=== PATIENT | male | born 1955 | race Caucasian/White ===

== ENCOUNTER 2018-02-13 17:24 | Inpatient (IN) | payer MEDICARE, OTHER ==
[2018-02-13] MEDS ORDERED: ALBUTEROL NEBULIZED (CONC) 5 MG, SODIUM CHLORIDE 0.9% NEBULIZ 3 ML INHALATION STA ×2 (17:33)
--- NOTE | 2018-02-13 17:40 | ED ---
General Adult HPI - General Stated complaint: Cardiac issues Time Seen by Provider: 02/13/18 17:25 Source: RN notes reviewed - History of Present Illness Initial comments: This is a 62-year-old male who presents to the emergency department from the correction. Patient has a history of anemia COPD and schizophrenia. Patient is being sent in today because he is complaining of some shortness of breath and occasional chest pain. Difficult to get an accurate history out of the patient. Most of the history comes per EMS. EMS states that the patient has a high white count and they are concerned at the correction that he has pneumonia. Patient has not had a fever. Patient denies any chest pain abdominal pain. Patient denies any nausea vomiting. Patient denies headache patient denies numbness weakness. Patient denies lightheadedness dizziness or near syncopal episode at correction was also concerned that the patient had A. fib on one of the EKGs that they did. Per EMS in route the patient was in sinus rhythm. - Related Data Home Medications Medication Instructions Recorded Confirmed Acetaminophen Tab [Tylenol Tab] 650 mg PO Q4H PRN 02/13/18 02/13/18 Albuterol Sulfate [Proair Hfa] 1 puff INHALATION RT-Q4H PRN 02/13/18 02/13/18 Amoxicillin/Potassium Clav 1 tab PO Q12HR 02/13/18 02/13/18 [Augmentin 875-125 Tablet] Calcium Acetate [Phoslo] 667 mg PO TID 02/13/18 02/13/18 Calcium Carbonate [Tums] 500 mg PO DAILY PRN 02/13/18 02/13/18 Cholecalciferol (Vitamin D3) 2,000 unit PO DAILY 02/13/18 02/13/18 [Vitamin D3] Clotrimazole/Betamethasone Dip 1 applic TOPICAL BID 02/13/18 02/13/18 [Lotrisone Cream] Demeclocycline HCl 300 mg PO DAILY 02/13/18 02/13/18 Famotidine [Pepcid] 20 mg PO HS 02/13/18 02/13/18 Fluticasone/Salmeterol [Advair 1 puff INHALATION RT-BID 02/13/18 02/13/18 250-50 Diskus] LORazepam [Ativan] 0.5 mg PO TID PRN 02/13/18 02/13/18 LORazepam [Ativan] 0.5 mg PO TUFR 02/13/18 02/13/18 Loratadine [Claritin] 10 mg PO DAILY 02/13/18 02/13/18 Lurasidone [Latuda] 40 mg PO DAILY 02/13/18 02/13/18 Lurasidone [Latuda] 80 mg PO DAILY 02/13/18 02/13/18 Magnesium Hydroxide [Milk of 1,200 mg PO Q72H PRN 02/13/18 02/13/18 Magnesia] Magnesium Oxide [Mag-Ox] 250 mg PO Q48H 02/13/18 02/13/18 Metoprolol Succinate [Toprol XL] 25 mg PO HS 02/13/18 02/13/18 Multivitamins, Thera [Multivitamin 1 tab PO DAILY 02/13/18 02/13/18 (formulary)] amLODIPine BESYLATE [Norvasc] 2.5 mg PO DAILY 02/13/18 02/13/18 Allergies Allergy/AdvReac Type Severity Reaction Status Date / Time thiothixene [From Navane] Allergy Unknown Verified 02/13/18 17:47 Review of Systems ROS Statement: Those systems with pertinent positive or pertinent negative responses have been documented in the HPI. ROS Other: All systems not noted in ROS Statement are negative. Past Medical History History of Any Multi-Drug Resistant Organisms: Other MDRO General Exam - General Exam Comments Initial Comments: GENERAL: Patient is well-developed and well-nourished. Patient is nontoxic and well- hydrated and is in mild distress. ENT: Neck is soft and supple. No significant lymphadenopathy is noted. Oropharynx is clear. Moist mucous membranes. Neck has full range of motion without eliciting any pain. EYES: The sclera were anicteric and conjunctiva were pink and moist. Extraocular movements were intact and pupils were equal round and reactive to light. Eyelids were unremarkable. PULMONARY: Diminished breath sounds throughout CARDIOVASCULAR: There is a regular rate and rhythm without any murmurs gallops or rubs. ABDOMEN: Soft and nontender with normal bowel sounds. No palpable organomegaly was noted. There is no palpable pulsatile mass. SKIN: Skin is clear with no lesions or rashes and otherwise unremarkable. NEUROLOGIC: Patient is alert and oriented x3. Cranial nerves II through XII are grossly intact. Motor and sensory are also intact. Normal speech, volume and content. Symmetrical smile. MUSCULOSKELETAL: Normal extremities with adequate strength and full range of motion. LYMPHATICS: No significant lymphadenopathy is noted PSYCHIATRIC: Patient is a very flat affect Course Vital Signs 02/13/18 02/13/18 02/13/18 17:25 17:48 17:57 Temperature 98.5 F Pulse Rate 106 H 102 H 106 H Respiratory 22 Rate Blood Pressure 141/79 O2 Sat by Pulse 100 Oximetry 02/13/18 18:12 Temperature Pulse Rate 109 H Respiratory 22 Rate Blood Pressure 139/85 O2 Sat by Pulse 100 Oximetry Medical Decision Making - Medical Decision Making EKG shows sinus tachycardia at 108 bpm OR interval 128 QRS is 72 QT interval 312 QTC is 418. Patient's EKG shows no ST segment elevation or depression or T wave abnormalities are noted. Chest x-ray shows a right upper lobe pneumonia. I started the patient on Rocephin and Zithromax. I admitted the patient I spoke with Dr. Hickman admitted the patient wrote admitting orders - Lab Data Result diagrams: 02/13/18 17:50 02/13/18 17:50 Lab Results 02/13/18 02/13/18 02/13/18 Range/Units 17:50 17:50 17:50 WBC 17.1 H (3.8-10.6) k/uL RBC 4.24 L (4.30-5.90) m/uL Hgb 12.1 L (13.0-17.5) gm/dL Hct 37.6 L (39.0-53.0) % MCV 88.6 (80.0-100.0) fL MCH 28.6 (25.0-35.0) pg MCHC 32.3 (31.0-37.0) g/dL RDW 12.7 (11.5-15.5) % Plt Count 408 (150-450) k/uL Neutrophils % 83 % Lymphocytes % 7 % Monocytes % 6 % Eosinophils % 1 % Basophils % 0 % Neutrophils # 14.2 H (1.3-7.7) k/uL Lymphocytes # 1.3 (1.0-4.8) k/uL Monocytes # 1.1 H (0-1.0) k/uL Eosinophils # 0.2 (0-0.7) k/uL Basophils # 0.0 (0-0.2) k/uL Sodium 135 L (137-145) mmol/L Potassium 4.1 (3.5-5.1) mmol/L Chloride 94 L (98-107) mmol/L Carbon Dioxide 24 (22-30) mmol/L Anion Gap 17 mmol/L BUN 26 H (9-20) mg/dL Creatinine 0.80 (0.66-1.25) mg/dL Est GFR (CKD-EPI)AfAm >90 (>60 ml/min/1.73 sqM) Est GFR (CKD-EPI)NonAf >90 (>60 ml/min/1.73 sqM) Glucose 108 H (74-99) mg/dL Plasma Lactic Acid Jarred (0.7-2.0) mmol/L Calcium 9.5 (8.4-10.2) mg/dL Total Bilirubin 0.5 (0.2-1.3) mg/dL AST 48 (17-59) U/L ALT 28 (21-72) U/L Alkaline Phosphatase 78 (38-126) U/L Total Creatine Kinase 154 (55-170) U/L CK-MB (CK-2) 4.2 H* (0.0-2.4) ng/mL CK-MB (CK-2) Rel Index 2.7 Troponin I 0.020 (0.000-0.034) ng/mL Total Protein 7.4 (6.3-8.2) g/dL Albumin 3.7 (3.5-5.0) g/dL Influenza Type A RNA (Not Detectd) Influenza Type B (PCR) (Not Detectd) 02/13/18 02/13/18 Range/Units 17:50 17:55 WBC (3.8-10.6) k/uL RBC (4.30-5.90) m/uL Hgb (13.0-17.5) gm/dL Hct (39.0-53.0) % MCV (80.0-100.0) fL MCH (25.0-35.0) pg MCHC (31.0-37.0) g/dL RDW (11.5-15.5) % Plt Count (150-450) k/uL Neutrophils % % Lymphocytes % % Monocytes % % Eosinophils % % Basophils % % Neutrophils # (1.3-7.7) k/uL Lymphocytes # (1.0-4.8) k/uL Monocytes # (0-1.0) k/uL Eosinophils # (0-0.7) k/uL Basophils # (0-0.2) k/uL Sodium (137-145) mmol/L Potassium (3.5-5.1) mmol/L Chloride (98-107) mmol/L Carbon Dioxide (22-30) mmol/L Anion Gap mmol/L BUN (9-20) mg/dL Creatinine (0.66-1.25) mg/dL Est GFR (CKD-EPI)AfAm (>60 ml/min/1.73 sqM) Est GFR (CKD-EPI)NonAf (>60 ml/min/1.73 sqM) Glucose (74-99) mg/dL Plasma Lactic Acid Jarred 1.7 (0.7-2.0) mmol/L Calcium (8.4-10.2) mg/dL Total Bilirubin (0.2-1.3) mg/dL AST (17-59) U/L ALT (21-72) U/L Alkaline Phosphatase (38-126) U/L Total Creatine Kinase (55-170) U/L CK-MB (CK-2) (0.0-2.4) ng/mL CK-MB (CK-2) Rel Index Troponin I (0.000-0.034) ng/mL Total Protein (6.3-8.2) g/dL Albumin (3.5-5.0) g/dL Influenza Type A RNA Not Detected (Not Detectd) Influenza Type B (PCR) Not Detected (Not Detectd) Disposition Clinical Impression: Pneumonia Disposition: ADMITTED IP TO THIS HOSP Is patient prescribed a controlled substance at d/c from ED?: No Referrals: Saurabh Fisher DO [Primary Care Provider] - 1-2 days Time of Disposition: 18:45
[2018-02-13 18:02] LABS: Basophils % (A) 0 %; Eosinophils # (A) 0.2 k/uL (0-0.7); Eosinophils % (A) 1 %; HCT 37.6 % (39.0-53.0); HGB 12.1 gm/dL (13.0-17.5); Lymphocytes # (A) 1.3 k/uL (1.0-4.8); Lymphocytes % (A) 7 %; MCH 28.6 pg (25.0-35.0); MCHC 32.3 g/dL (31.0-37.0); MCV 88.6 fL (80.0-100.0); Mean Platelet Volume 7.5; Monocytes # (A) 1.1 k/uL (0-1.0); Monocytes % (A) 6 %; Neutrophils # (A) 14.2 k/uL (1.3-7.7); Neutrophils % (A) 83 %; Platelet Count 408 k/uL (150-450); RBC 4.24 m/uL (4.30-5.90); RDW 12.7 % (11.5-15.5); WBC 17.1 k/uL (3.8-10.6)
[2018-02-13 18:13] LABS: ALT 28 U/L (21-72); AST 48 U/L (17-59); Albumin 3.7 g/dL (3.5-5.0); Alkaline Phosphatase 78 U/L (38-126); Anion Gap 17 mmol/L; Blood Urea Nitrogen 26 mg/dL (9-20); Calcium 9.5 mg/dL (8.4-10.2); Carbon Dioxide 24 mmol/L (22-30); Chloride 94 mmol/L (98-107); Glucose 108 mg/dL (74-99); Potassium 4.1 mmol/L (3.5-5.1); Sodium 135 mmol/L (137-145); Total Bilirubin 0.5 mg/dL (0.2-1.3); Total Protein 7.4 g/dL (6.3-8.2)
--- NOTE | 2018-02-13 18:19 | XR ---
EXAMINATION TYPE: XR chest 2V DATE OF EXAM: 02/13/2018 COMPARISON: 05/18/2013 HISTORY: Short of breath TECHNIQUE: Frontal and lateral views of the chest are obtained. FINDINGS: Heart is normal. There is some infiltrate in the right upper lobe medially. There is sligh t blunting of right costophrenic angle. There is no heart failure. Mediastinum appears normal. The cintia ny thorax appears intact. IMPRESSION: There is new right upper lobe pneumonia compared to old exam. Small right pleural effusi on. No heart failure.
[2018-02-13 18:28] LABS: Troponin I 0.02 ng/mL (0.000-0.034)
[2018-02-13 18:33] LABS: Creatine Kinase MB 4.2 ng/mL (0.0-2.4)
[2018-02-13] MEDS ORDERED: cefTRIAXone IN SWFI 2,000 MG/20 ML SYRINGE IVP STA (18:44)
[2018-02-13] MEDS ORDERED: PNEUMONIA PROTOCOL UTILIZED 1 EACH MISC PO PRN (18:45)
[2018-02-13] MEDS ORDERED: AZITHROMYCIN 500 MG in SODIUM CHLORIDE 0.9% 250 ML IVPB STA (18:45)
[2018-02-13 19:21] LABS: INR 1.1 (<1.2); Partial Thromboplastin Time 27.4 sec (22.0-30.0); Prothrombin Time 11.1 sec (9.0-12.0)
[2018-02-13] MEDS ORDERED: ALBUTEROL NEBULIZED 2.5 MG/3 ML INHALATION SCH (20:00)
[2018-02-13] MEDS ORDERED: LORazepam 0.5 MG TAB PO PRN (20:06)
[2018-02-13] MEDS: CALCIUM ACETATE 667 MG CAP PO SCH (21:09)
[2018-02-13] MEDS: MAGNESIUM OXIDE 400 MG TAB PO SCH (21:10)
[2018-02-13] MEDS: CLOTRIMAZOLE/BETAMETH 1-0.05% CREAM 45 GM TUBE TOPICAL SCH (21:10)
[2018-02-13] MEDS: METOPROLOL SUCCINATE (ER) 25 MG TAB.ER.24H PO SCH (21:10)
[2018-02-13] MEDS: FAMOTIDINE 20 MG TAB PO SCH (21:10)
[2018-02-13 21:27] VITALS: BMI 22.9
[2018-02-13] MEDS ORDERED: ACETAMINOPHEN TAB 325 MG TAB PO PRN (21:39)
[2018-02-13] MEDS ORDERED: MAGNESIUM HYDROXIDE 2,400 MG/10 ML CUP PO PRN (21:39)
[2018-02-13] MEDS ORDERED: ONDANSETRON 4 MG/2 ML VIAL IVP PRN (21:39)
[2018-02-13] MEDS ORDERED: NALOXONE 0.4 MG/ML 1 ML VIAL IV PRN (21:39)
[2018-02-13] MEDS ORDERED: MELATONIN 3 MG TABLET PO PRN (21:39)
[2018-02-13] MEDS ORDERED: CALCIUM CARBONATE 500 MG CHEWABLE PO PRN (21:39)
[2018-02-13] MEDS ORDERED: LACTULOSE 20 GM/30 ML CUP PO PRN (21:39)
[2018-02-13] MEDS: guaiFENesin 600 MG TABLET.ER PO SCH (22:04)
[2018-02-13] MEDS: ENOXAPARIN 40 MG/0.4 ML SYRINGE SQ SCH (22:04)
[2018-02-13 22:38] LABS: Amorphous Sediment,Urine Rare /hpf; Appearance,Urine Clear (Clear); Bilirubin,Urine Negative (Negative); Blood,Urine Small (Negative); Color,Urine Yellow; Glucose,Urine (UA) Negative (Negative); Hyaline Casts,Urine 7 /lpf (0-2); Ketones,Urine 2+ (Negative); Leukocyte Esterase,Urine Negative (Negative); Mucus,Urine Moderate /hpf; Nitrite,Urine Negative (Negative); PH, Urine 6.5 (5.0-8.0); Protein,Urine 2+ (Negative); RBC,Urine 9 /hpf (0-5); Specific Gravity,Urine 1.028 (1.001-1.035); WBC,Urine 4 /hpf (0-5)
--- NOTE | 2018-02-13 22:50 | HP ---
HISTORY AND PHYSICAL DATE OF ADMISSION: 02/13/2018 PRESENTING COMPLAINT: Short of breath, cough. HISTORY OF PRESENTING COMPLAINT: This is a 62-year-old patient of Dr. Fisher who stays at the [facility]. Chronic stable medical conditions include CHF, SIADH, schizophrenia. The patient was a heavy smoker up until not too long ago. Patient is not a good historian. He presents with a multitude of symptoms. The patient has a cough, is short of breath, wheezing, brings up sputum, but he actually swallows it. Patient has been feeling tired, rundown, with decreased appetite; somewhat jittery. He presented to the ER. REVIEW OF SYSTEMS: CONSTITUTIONAL: Tired. HEENT: None. RESPIRATORY: As above. CARDIOVASCULAR: None. GASTROINTESTINAL: None. GENITOURINARY: None. MUSCULOSKELETAL: None. DERMATOLOGICAL: None. HEMATOLOGICAL: None. LYMPHATICS: None. PSYCHIATRY: Anxious. NEUROLOGICAL: Some mild tremors. PAST MEDICAL HISTORY: 1. COPD. 2. Hypertension. 3. SIADH. PAST SURGICAL HISTORY: 1. Thumb surgery. 2. Heel surgery. SOCIAL HISTORY: Patient smoked for many years. Currently a resident of [facility]. Denies alcohol. FAMILY HISTORY: Patient does not know. HOME MEDICATIONS: 1. Milk of Magnesia 1200 mg q.72 hours p.r.n. 2. ProAir 1 puff q.4 p.r.n. 3. Claritin 10 mg p.o. daily. 4. Ativan 0.5 p.o. t.i.d. p.r.n. 5. Tums 500 mg p.o. t.i.d. p.r.n. 6. Lotrisone 1 application topical b.i.d. 7. PhosLo 1 tablet p.o. t.i.d. 8. Augmentin 875 1 tablet p.o. q.12. 9. Multivitamin 1 tablet p.o. daily. 10.Advair 250/50 one puff b.i.d. 11.Toprol-XL 25 mg at bedtime. 12.Vitamin D3 2000 units p.o. daily. 13.Magnesium oxide 250 mg q.48 hours. 14.Ativan 0.5 p.o. Friday and Friday. 15.Latuda 80 and 40 mg p.o. daily. 16.Pepcid 20 mg p.o. at bedtime. 17.Norvasc 2.5 p.o. daily. 18.Demeclocycline 300 mg p.o. daily. ALLERGIES: NAVANE. PHYSICAL EXAMINATION: Temperature 98.5, pulse 106, respiration 22, blood pressure 141/79, pulse ox 100% on room air. GENERAL APPEARANCE: Sitting up, tired-appearing. EYES: Pupils equal. Conjunctivae normal. HEENT: External appearance of nose and ears normal. Oral cavity normal. Patient has a langston. NECK: JVD unable to assess. Mass not palpable. RESPIRATORY: Effort increased. LUNGS: Decreased breath sounds. Expiratory wheezing. CARDIOVASCULAR: First and second sounds normal. No edema. ABDOMEN: Soft, nontender. Liver and spleen not palpable. LYMPHATIC: No lymph node palpable in neck or axillae. PSYCHIATRY: Awake, alert. Answering simple questions. Not able to talk fluently. NEUROLOGICAL: Pupils equal. Cranial nerves grossly intact. Power and sensation grossly intact. INVESTIGATIONS: White count 17.1, hemoglobin 12.1, potassium 4.1, BUN 26, creatinine 0.80, troponin 0.20. Influenza A and B not detected. Chest x-ray shows right upper lobe pneumonia. ASSESSMENT: 1. Right upper lobe pneumonia; suspect Gram-negative organism. 2. Chronic schizophrenia. 3. Syndrome of inappropriate antidiuretic hormone. 4. Acute chronic obstructive pulmonary disease in an ex-smoker. PLAN: Patient is started on IV ceftriaxone, Zithromax, bronchodilators, inhaled steroids. Home medications are resumed. Will also add Mucinex for sputum expectoration. MMODL / IJN: [id number] /
[2018-02-14] MEDS: BUDESONIDE 1 MG/2 ML NEBU INHALATION SCH ×3 (00:22→20:43)
[2018-02-14] MEDS: IPRATROPIUM-ALBUTEROL 3 ML NEB INHALATION SCH ×8 (00:23→23:44)
[2018-02-14] MEDS: CALCIUM ACETATE 667 MG CAP PO SCH ×4 (06:33→17:53)
[2018-02-14] MEDS ORDERED: SYMBICORT 80-4.5 MCG INHALER INHALATION SCH (08:00)
[2018-02-14] MEDS: DEMECLOCYCLINE 150 MG TAB PO SCH (08:56)
[2018-02-14] MEDS: ENOXAPARIN 40 MG/0.4 ML SYRINGE SQ SCH (08:56)
[2018-02-14] MEDS: guaiFENesin 600 MG TABLET.ER PO SCH ×2 (08:57→20:09)
[2018-02-14] MEDS: amLODIPine 2.5 MG TAB PO SCH (09:06)
[2018-02-14] MEDS: CLOTRIMAZOLE/BETAMETH 1-0.05% CREAM 45 GM TUBE TOPICAL SCH ×2 (09:06→20:09)
[2018-02-14] MEDS: LACTATED RINGERS 1,000 ML IV SCH (10:44)
[2018-02-14] MEDS: MULTIVITAMINS, THERA 1 EACH TAB PO SCH (12:28)
[2018-02-14] MEDS: LURASIDONE 80 MG TAB PO SCH (12:28)
[2018-02-14] MEDS: LURASIDONE 40 MG TAB PO SCH (12:28)
--- NOTE | 2018-02-14 14:24 | PN ---
PROGRESS NOTE DATE OF SERVICE: 02/14/2018. PRESENTING COMPLAINT: Short of breath, cough. INTERVAL HISTORY: This patient with multiple issues presented with right upper lobe pneumonia. Tired, not feeling well. Less cough. Did not eat any breakfast. Sitting on bed. REVIEW OF SYSTEMS: Done for constitutional, cardiovascular, GI, pulmonary; relevant findings as above. CURRENT MEDICATIONS: Reviewed. They include Zithromax and ceftriaxone. PHYSICAL EXAMINATION: Temperature 97, pulse 111, respiration 26, blood pressure 107/65, pulse ox 98% on 3 L. GENERAL APPEARANCE: Sitting up. Tired-appearing. EYES: Pupils equal. Conjunctivae normal. HEENT: External appearance of nose and ears normal. Oral cavity normal. NECK: JVD unable to assess. Mass not palpable. RESPIRATORY: Effort increased. LUNGS: Decreased breath sounds. Prolonged expiration. CARDIOVASCULAR: First and second sounds normal. No edema. ABDOMEN: Soft, nontender. Liver and spleen not palpable. PSYCHIATRY: Alert and oriented x3. Mood and affect slightly anxious-appearing. INVESTIGATIONS: Blood work pending. ASSESSMENT: 1. Right upper lobe pneumonia; suspect Gram-negative organism, slow to respond. 2. Chronic schizophrenia. 3. Syndrome of inappropriate antidiuretic hormone. 4. Acute chronic obstructive pulmonary disease exacerbation in an ex-smoker. 5. Sepsis from pneumonia, present on admission. PLAN: Continue with current medication and treatment plan, steroids, antibiotics. Will add IV fluids and encourage patient to improve his oral intake. MMODL / IJN: [id number] /
--- NOTE | 2018-02-14 14:27 | XR ---
EXAMINATION TYPE: XR chest 2V DATE OF EXAM: 02/14/2018 COMPARISON: Chest x-ray from yesterday and older studies HISTORY: Pneumonia progress exam TECHNIQUE: Frontal and lateral views of the chest are obtained. FINDINGS: There is background chronic emphysematous change with increasing right upper lobe and ante rior right hilar opacity along the minor fissure. There are persistent tiny right greater than left b ilateral pleural effusions. Left lung remains clear. The cardiac silhouette size is within normal li mits. The osseous structures remain demineralized. IMPRESSION: Chronic emphysematous change with tiny right greater than left pleural effusions redemon strated. Worsening right upper lobe infiltrate and developing new anterior right midlung infiltrates are noted.
[2018-02-14] MEDS: AZITHROMYCIN 500 MG TAB PO SCH (17:53)
[2018-02-14] MEDS: cefTRIAXone IN SWFI 1,000 MG/10 ML SYRINGE IVP SCH (18:44)
[2018-02-14] MEDS: METOPROLOL SUCCINATE (ER) 25 MG TAB.ER.24H PO SCH (20:09)
[2018-02-14] MEDS: FAMOTIDINE 20 MG TAB PO SCH (20:09)
[2018-02-15] MEDS: IPRATROPIUM-ALBUTEROL 3 ML NEB INHALATION SCH ×6 (04:19→23:17)
[2018-02-15] MEDS: DILTIAZEM 50 MG in SODIUM CHLORIDE 0.9% 40 ML IV SCH ×2 (06:07→09:30)
[2018-02-15] MEDS: CALCIUM ACETATE 667 MG CAP PO SCH ×3 (06:13→17:21)
[2018-02-15] MEDS: LACTATED RINGERS 1,000 ML IV SCH ×3 (06:13→17:20)
[2018-02-15 06:20] LABS: Basophils % (A) 0 %; Eosinophils # (A) 0.3 k/uL (0-0.7); Eosinophils % (A) 2 %; HCT 37.9 % (39.0-53.0); Lymphocytes # (A) 1.3 k/uL (1.0-4.8); Lymphocytes % (A) 9 %; MCH 28.9 pg (25.0-35.0); MCHC 31.7 g/dL (31.0-37.0); Mean Platelet Volume 7.5; Monocytes % (A) 7 %; Neutrophils # (A) 12.1 k/uL (1.3-7.7); Neutrophils % (A) 82 %; Platelet Count 353 k/uL (150-450); RBC 4.16 m/uL (4.30-5.90); RDW 12.7 % (11.5-15.5); WBC 14.8 k/uL (3.8-10.6)
[2018-02-15 06:40] LABS: Blood Urea Nitrogen 16 mg/dL (9-20); Calcium 8.6 mg/dL (8.4-10.2); Carbon Dioxide 28 mmol/L (22-30); Glucose 146 mg/dL (74-99); Potassium 3.5 mmol/L (3.5-5.1); Sodium 135 mmol/L (137-145)
[2018-02-15 06:54] LABS: Anion Gap 14 mmol/L; Chloride 93 mmol/L (98-107)
[2018-02-15] MEDS: BUDESONIDE 1 MG/2 ML NEBU INHALATION SCH ×2 (07:36→20:40)
[2018-02-15] MEDS ORDERED: POTASSIUM CHLORIDE ER 20 MEQ TAB.ER PO STA (07:54)
[2018-02-15] MEDS: DEMECLOCYCLINE 150 MG TAB PO SCH (08:17)
[2018-02-15] MEDS: guaiFENesin 600 MG TABLET.ER PO SCH ×2 (08:18→20:12)
[2018-02-15] MEDS: ENOXAPARIN 40 MG/0.4 ML SYRINGE SQ SCH (08:18)
--- NOTE | 2018-02-15 12:46 | CONS ---
CONSULTATION Mr. Rasmussen is a 62-year-old male with a prior history of smoking, who is a resident of [facility] care facility who was transferred with symptoms of progressive dyspnea and cough diagnosed with pneumonia. Cardiology consultation was requested because of atrial fibrillation. On presentation, he was in sinus mechanism on the . Subsequently he reverted to atrial fibrillation, by reviewing an EKG that was done on the as an outpatient on February 13 it shows atrial fibrillation, which is suggestive that the patient has paroxysmal atrial fibrillation. He is not a good historian, but he denies any symptoms of chest pain. He denies any knowledge of the palpitation. He feels dyspneic with cough, although he is better now. He denies any dizziness. He denies any syncope. He denies any nausea. His coronary risk factors are remarkable for the prior history of smoking. He is nondiabetic, hypertensive. His lipid profile is not available. MEDICATION: Include amlodipine, Latuda, Ativan, Toprol-XL 25 mg daily, calcium carbonate, lorazepam, Claritin, ProAir. REVIEW OF SYSTEMS: Somewhat limited, patient has dyspnea on exertion and cough and wheezing. GI system: No nausea. No vomiting. No GI bleeding. system: No dysuria or hematuria. Nervous system: No history of seizure. He has a history of schizophrenia. PHYSICAL EXAMINATION: 62-year-old male, alert, no apparent distress. Blood pressure 122/80 with a heart rate in the 80s. HEAD: Normocephalic. Eyes sclerae anicteric. Neck: No bruit. Lungs with decreased air exchange bilaterally. No wheezes. Heart irregularly irregular. S1, S2. No S3. No rub. ABDOMEN: Soft, nontender. EXTREMITIES: No edema. LAB DATA: Initial EKG was sinus mechanism with a rate of 108, normal axis and intervals. No acute changes. Subsequent EKG revealed atrial fibrillation with nonspecific ST-T wave changes. Chest x-ray shows right upper lobe pneumonia. Repeat chest x-ray done showed worsening right upper lobe infiltrate. Lab data revealed a hemoglobin of 12, white blood cell 14.8. It was 17.1 on admission. BUN and creatinine 16 and 0.7. Troponin 0.02. IMPRESSION: 1. Pneumonia. 2. Atrial fibrillation, paroxysmal. Looking at an EKG from outpatient. 3. History of chronic obstructive lung disease. 4. History of schizophrenia. RECOMMENDATION: I will stop his IV Cardizem and switch him to oral verapamil. I will add to his regimen anticoagulation in the form of Xarelto. Continue his medical regimen. An echocardiogram with Doppler will be obtained. Depending on his progress, further recommendations will be made. Thank you for this consult. We will follow with you. BALWINDER / HUONGN: [id number] /
[2018-02-15] MEDS: LURASIDONE 80 MG TAB PO SCH (13:23)
[2018-02-15] MEDS: LURASIDONE 40 MG TAB PO SCH (13:23)
[2018-02-15] MEDS: MULTIVITAMINS, THERA 1 EACH TAB PO SCH (13:23)
[2018-02-15] MEDS: VERAPAMIL 40 MG TAB PO SCH ×2 (13:24→17:21)
[2018-02-15] MEDS: CLOTRIMAZOLE/BETAMETH 1-0.05% CREAM 45 GM TUBE TOPICAL SCH ×2 (17:20→20:12)
[2018-02-15] MEDS: AZITHROMYCIN 500 MG TAB PO SCH (17:21)
[2018-02-15] MEDS ORDERED: RIVAROXABAN 20 MG TAB PO SCH (17:30)
[2018-02-15] MEDS: cefTRIAXone IN SWFI 1,000 MG/10 ML SYRINGE IVP SCH (20:11)
[2018-02-15] MEDS: MAGNESIUM OXIDE 400 MG TAB PO SCH (20:12)
[2018-02-15] MEDS: METOPROLOL SUCCINATE (ER) 25 MG TAB.ER.24H PO SCH (20:12)
[2018-02-15] MEDS: FAMOTIDINE 20 MG TAB PO SCH (20:12)
--- NOTE | 2018-02-15 21:58 | PN ---
PROGRESS NOTE DATE OF SERVICE: 02/15/2018. PRESENTING COMPLAINT: Cough. INTERVAL HISTORY: This patient presented with right upper lobe pneumonia. Breathing is better. Cough is better. Not bringing up much sputum. The patient had 2 runs of atrial fibrillation. Started on verapamil by Cardiology and also started on Xarelto. On examination, temperature 97.4, pulse 80, respiration 20, blood pressure 120/82, pulse ox 100% on 3 liters. GENERAL APPEARANCE: Sitting up, more awake. EYES: Pupils equal. Conjunctivae normal. HEENT: External nose and ears normal. Oral cavity normal. NECK: JVD unable to assess. Mass not palpable. Respiratory effort increased. LUNGS: Decreased breath sounds. CARDIOVASCULAR: First and second sounds heard. No edema. ABDOMEN: Soft, nontender. Liver and spleen not palpable. PSYCHIATRY: Awake, answering questions. Appearing anxious. INVESTIGATIONS: White count 14.8, hemoglobin 12, potassium 3.5, TSH 0.77. ASSESSMENT: 1. Right upper lobe pneumonia, suspect gram-negative organism, clinically improving. 2. Paroxysmal atrial fibrillation. 3. Chronic schizophrenia. 4. Syndrome of inappropriate antidiuretic hormone. 5. Chronic obstructive pulmonary disease in an ex-smoker. 6. Sepsis from pneumonia, present on admission, improved. 7. Abnormal TSH in the setting of acute illness. Cannot be accurate. Will repeat a TSH and free T4 and then decide on clinical basis if patient is actually hyperthyroid. MMODL / IJN: [id number] /
[2018-02-16] MEDS: VERAPAMIL 40 MG TAB PO SCH ×2 (00:37→09:14)
[2018-02-16 02:44] VITALS: RESP 20
[2018-02-16] MEDS: LACTATED RINGERS 1,000 ML IV SCH ×2 (02:49→12:45)
[2018-02-16] MEDS: IPRATROPIUM-ALBUTEROL 3 ML NEB INHALATION SCH ×3 (04:03→11:53)
[2018-02-16 06:34] LABS: Anion Gap 11 mmol/L; Blood Urea Nitrogen 9 mg/dL (9-20); Calcium 8.6 mg/dL (8.4-10.2); Carbon Dioxide 30 mmol/L (22-30); Chloride 93 mmol/L (98-107); Glucose 105 mg/dL (74-99); Potassium 3.6 mmol/L (3.5-5.1); Sodium 134 mmol/L (137-145)
[2018-02-16] MEDS: CALCIUM ACETATE 667 MG CAP PO SCH ×2 (06:45→12:44)
[2018-02-16] MEDS: BUDESONIDE 1 MG/2 ML NEBU INHALATION SCH (08:18)
[2018-02-16] MEDS: DEMECLOCYCLINE 150 MG TAB PO SCH (09:14)
[2018-02-16] MEDS: CLOTRIMAZOLE/BETAMETH 1-0.05% CREAM 45 GM TUBE TOPICAL SCH (09:14)
[2018-02-16] MEDS: LURASIDONE 40 MG TAB PO SCH (09:14)
[2018-02-16] MEDS: guaiFENesin 600 MG TABLET.ER PO SCH (09:14)
[2018-02-16] MEDS: LURASIDONE 80 MG TAB PO SCH (09:15)
[2018-02-16 09:18] VITALS: TEMP 97.4
[2018-02-16] MEDS: amLODIPine 2.5 MG TAB PO SCH (11:11)
--- NOTE | 2018-02-16 11:31 | ECHOF ---
Referral Reason:afib MEASUREMENTS -------- HEIGHT: 177.8 cm WEIGHT: 70.8 kg BP: 124/69 RVIDd: 3.3 cm (< 3.3) IVSd: 1.2 cm (0.6 - 1.1) LVIDd: 4.1 cm (3.9 - 5.3) LVPWd: 1.2 cm (0.6 - 1.1) IVSs: 1.6 cm LVIDs: 3.1 cm LVPWs: 1.7 cm LA Diam: 3.1 cm (2.7 - 3.8) LAESV Index (A-L): 22.91 ml/m Ao Diam: 3.6 cm (2.0 - 3.7) AV Cusp: 2.3 cm (1.5 - 2.6) MV EXCURSION: 19.436 mm (> 18.000) MV EF SLOPE: 75 mm/s (70 - 150) EPSS: 0.4 cm MV E Jabari: 1.26 m/s MV DecT: 212 ms MV A Jabari: 1.17 m/s MV E/A Ratio: 1.08 RAP: 5.00 mmHg RVSP: 57.17 mmHg FINDINGS -------- Resting tachycardia (HR>100bpm). This was a technically adequate study. The left ventricular size is normal. There is borderline concentric left ventricular hypertrophy. Overall left ventricular systolic function is normal with, an EF between 55 - 60 %. The right ventricle is mildly enlarged. Normal LA size by volume 22+/-6 ml/m2. The right atrium is normal in size. The aortic valve was not well visualized. Mild mitral annular calcification present. Mild mitral regurgitation is present. Mild tricuspid regurgitation present. There is severe pulmonary hypertension. The right ventricul ar systolic pressure, as measured by Doppler, is 57.17mmHg. The pulmonic valve was not well visualized. The aortic root size is normal. Normal inferior vena cava with normal inspiratory collapse consistent with estimated right atrial pre ssure of 5 mmHg. There is no pericardial effusion. CONCLUSIONS -------- 1. Resting tachycardia (HR>100bpm). 2. This was a technically adequate study. 3. The left ventricular size is normal. 4. There is borderline concentric left ventricular hypertrophy. 5. Overall left ventricular systolic function is normal with, an EF between 55 - 60 %. 6. The right ventricle is mildly enlarged. 7. Normal LA size by volume 22+/-6 ml/m2. 8. The right atrium is normal in size. 9. The aortic valve was not well visualized. 10. Mild mitral annular calcification present. 11. Mild mitral regurgitation is present. 12. Mild tricuspid regurgitation present. 13. There is severe pulmonary hypertension. 14. The right ventricular systolic pressure, as measured by Doppler, is 57.17mmHg. 15. The pulmonic valve was not well visualized. 16. The aortic root size is normal. 17. Normal inferior vena cava with normal inspiratory collapse consistent with estimated right atrial pressure of 5 mmHg. 18. There is no pericardial effusion. VIDEO CLERK: Malou Ybarra RDCS
[2018-02-16] MEDS ORDERED: AMIODARONE 200 MG TAB PO SCH (12:00)
[2018-02-16] MEDS: MULTIVITAMINS, THERA 1 EACH TAB PO SCH (12:44)
[2018-02-16 13:40] VITALS: BP 155/72; PULSE 105
--- NOTE | 2018-02-16 15:14 | P.PN ---
Subjective Progress Note Date: 02/16/18 This is a 62-year-old gentleman with prior history of smoking, he is a resident at an extended care facility, was transferred to the hospital with symptoms of progressive dyspnea and cough, diagnosed with pneumonia. Originally cardiology was requested to see the patient because of atrial fibrillation. This morning patient is in a normal sinus rhythm, he is on xarelto 20 mg daily which has been approved. An echocardiogram with Doppler study was also performed which revealed an ejection fraction of 50-60%. Blood pressure 132/70 with a heart rate in the 80s to 90s. Patient has been initiated today on amiodarone 400 mg one tablet by mouth twice a day which we will taper down. Objective - Vital Signs Vital signs: Vital Signs Temp 97.4 F L 02/16/18 08:00 Pulse 95 02/16/18 12:03 Resp 20 02/16/18 04:00 BP 155/72 02/16/18 12:00 Pulse Ox 95 02/16/18 12:00 Intake & Output 02/15/18 02/16/18 02/16/18 18:59 06:59 18:59 Intake Total 109.490 5716 620 Output Total 675 500 125 Balance -451.167 800 495 Weight 74.6 kg Intake: Intake, IV Titration 33.833 1200 500 Amount Diltiazem 50 mg In Sodium 33.833 Chloride 0.9% 40 ml @ 10 MG/HR 10 mls/hr IV .Q5H BRIA Rx#:[id number] Lactated Ringers 1,000 ml 1200 500 @ 100 mls/hr IV .Q10H BRIA Rx#:[id number] Oral 190 120 Other 100 Output: Urine 675 500 125 Other: Voiding Method Urinal Urinal Incontinent Incontinent # Voids 1 1 # Bowel Movements 0 0 - Exam PHYSICAL EXAMINATION: HEENT: [Head is atraumatic, normocephalic. Pupils equal, round. Neck is supple. There is no elevated jugular venous pressure.] HEART EXAMINATION: [Heart S1, S2 normal. No murmur or gallop heard.] CHEST EXAMINATION: Lungs reveal decreased air exchange throughout. ABDOMEN: [ Soft, nontender. Bowel sounds are heard. No organomegaly noted]. EXTREMITIES:[ 2+ peripheral pulses with no evidence of peripheral edema and no calf tenderness noted]. NEUROLOGIC [patient is awake, alert and oriented -3.] . - Labs CBC & Chem 7: 02/15/18 05:55 02/16/18 06:00 Labs: Abnormal Lab Results - Last 24 Hours (Table) 02/16/18 Range/Units 06:00 Sodium 134 L (137-145) mmol/L Chloride 93 L (98-107) mmol/L Creatinine 0.62 L (0.66-1.25) mg/dL Glucose 105 H (74-99) mg/dL Microbiology - Last 24 Hours (Table) 02/13/18 17:50 Blood Culture - Preliminary Blood No Growth after 48 hours 02/13/18 17:32 Urine Culture - Final Urine,Voided Assessment and Plan Plan: Assessment and plan #1 pneumonia #2 paroxysmal atrial fibrillation #3 history of COPD #4 schizophrenia Plan Echocardiogram with Doppler study was performed which revealed an ejection fraction of 55-60%. From cardiology's perspective, we will start the patient on amiodarone 400 mg by mouth twice a day, continue Xarelto along with her beta pablo. Upon discharge we will make the patient a follow-up appointment in the office. DNP note has been reviewed, I agree with a documented findings and plan of care. Patient was seen and examined.
--- NOTE | 2018-02-16 15:32 | DS ---
DISCHARGE SUMMARY DATE OF ADMISSION: 02/14/2018 DATE OF DISCHARGE: 02/16/2018 FINAL DIAGNOSIS: 1. Right upper lobe pneumonia, suspect gram-negative organism present on admission. 2. Paroxysmal atrial fibrillation, currently in sinus rhythm. 3. Chronic schizophrenia. 4. SIADH. 5. Chronic obstructive pulmonary disease acute exacerbation in an ex-smoker. 6. Sepsis from pneumonia, present on admission. HOSPITAL COURSE: This patient presented with some COPD exacerbation and right upper lobe pneumonia, doing much better at the time of discharge. Patient's cultures were negative. Patient is afebrile. Patient did have bouts of paroxysmal atrial fibrillation and was seen by Dr. Ogden from Cardiology. A 2D echocardiogram was unremarkable. Patient remains in sinus rhythm. PHYSICAL EXAM: LUNGS: Improved air entry. CARDIOVASCULAR: First and second sounds are normal. Patient is a bit anxious. DISCHARGE MEDICATIONS: 1. Tylenol 650 mg q.4 p.r.n. 2. ProAir 1 puff q.4h p.r.n.. 3. PhosLo 667 mg p.o. t.i.d. 4. vitamin D3 two thousand units p.o. daily. 5. Lotrisone 1 application topical b.i.d. 6. Demeclocycline 300 mg p.o. daily. 7. Pepcid 20 mg p.o. q.h.s. 8. Advair 250/50 one puff b.i.d. 9. Latuda 120 mg a day. 10.Milk of Magnesia 1200 mg q.72 hours p.r.n. 11.Magnesium oxide 250 mg every 48 hours. 12.Toprol-XL 25 mg p.o. q.h.s. 13.Multivitamin 1 tablet p.o. daily. 14.Cordarone 400 mg b.i.d. for 7 days then 400 mg a day. 15.Pulmicort 1 mg p.o. b.i.d. for 10 days. 16.Ceftin 500 mg p.o. b.i.d. , 10 tablets. 17.DuoNeb q.i.d. 18.Ativan 0.5 p.o. t.i.d. p.r.n. 19.Melatonin 3 mg q.h.s. p.r.n. 20.Isoptin 40 mg p.o. t.i.d. 21.Discontinued Claritin, Augmentin, amlodipine. DISPOSITION: ECF. Follow up with Dr. Fisher at the [facility]. MMODL / IJN: [id number] /
== END 2018-02-16 16:09 | DRG 871 ==
LOC: EC 17:24 → 6SEL 18:45 → EEVIPCON 18:45 → 6SEL 19:31
PROVIDERS: ADMIT Hospitalist; ATTEND Hospitalist
DX: A41.9 Sepsis, unspecified organism (principal); J15.6 Pneumonia due to other Gram-negative bacteria; I11.0 Hypertensive heart disease with heart failure; E22.2 Syndrome of inappropriate secretion of antidiuretic hormone; I50.9 Heart failure, unspecified; I48.0 Paroxysmal atrial fibrillation; J44.0 Chronic obstructive pulmonary disease with (acute) lower respiratory infection; J44.1 Chronic obstructive pulmonary disease with (acute) exacerbation; F20.9 Schizophrenia, unspecified; Z79.01 Long term (current) use of anticoagulants; Z87.891 Personal history of nicotine dependence; Z79.899 Other long term (current) drug therapy; Z88.8 Allergy status to other drugs, medicaments and biological substances
CPT/HCPCS: 36415; 71046; 80048; 80053; 81001; 82550; 82553; 83605; 84443; 84484; 85025; 85610; 85730; 87040; 87086; 87502; 93005; 93306; 94640; 96365; 96375; 99285

== ENCOUNTER 2018-05-11 09:20 | Observation (INO) | payer MEDICARE, OTHER ==
[2018-05-11] MEDS ORDERED: SODIUM CHLORIDE 0.9% 1,000 ML IV STA (09:55)
[2018-05-11 10:15] LABS: Anisocytosis Slight; Basophils # (A) 0.1 k/uL (0-0.2); Basophils % (A) 1 %; Eosinophils # (A) 0.1 k/uL (0-0.7); Eosinophils % (A) 2 %; HCT 24.5 % (39.0-53.0); HGB 7.7 gm/dL (13.0-17.5); Hypochromasia Moderate; Lymphocytes # (A) 0.9 k/uL (1.0-4.8); Lymphocytes % (A) 11 %; MCH 29.8 pg (25.0-35.0); MCHC 31.3 g/dL (31.0-37.0); MCV 95.2 fL (80.0-100.0); Mean Platelet Volume 6.7; Monocytes # (A) 0.6 k/uL (0-1.0); Monocytes % (A) 7 %; Neutrophils # (A) 6.2 k/uL (1.3-7.7); Neutrophils % (A) 78 %; Platelet Count 522 k/uL (150-450); RBC 2.57 m/uL (4.30-5.90); RDW 17.3 % (11.5-15.5); WBC 7.9 k/uL (3.8-10.6)
[2018-05-11 10:24] LABS: INR 1.2 (<1.2); Prothrombin Time 11.6 sec (9.0-12.0)
[2018-05-11 10:28] LABS: ALT 23 U/L (21-72); AST 23 U/L (17-59); Albumin 3.6 g/dL (3.5-5.0); Alkaline Phosphatase 50 U/L (38-126); Anion Gap 9 mmol/L; Blood Urea Nitrogen 19 mg/dL (9-20); Calcium 8.8 mg/dL (8.4-10.2); Carbon Dioxide 25 mmol/L (22-30); Chloride 100 mmol/L (98-107); Glucose 104 mg/dL (74-99); Magnesium 1.7 mg/dL (1.6-2.3); Sodium 134 mmol/L (137-145); Total Bilirubin 0.8 mg/dL (0.2-1.3); Total Protein 6.6 g/dL (6.3-8.2)
--- NOTE | 2018-05-11 10:35 | ED ---
General Adult HPI - General Chief complaint: Recheck/Abnormal Lab/Rx Stated complaint: abn labs Time Seen by Provider: 05/11/18 09:37 Source: patient, RN notes reviewed, old records reviewed Mode of arrival: ambulatory - History of Present Illness Initial comments: This is a 62-year-old male the ER for evaluation today.presented ER for evaluation of abnormal lab tests. Patient was scheduled for renal and kidney biopsy today. He was sent to ER for evaluation of outpatient lab tests, low hemoglobin. Patient has no complaints is asymptomatic - Related Data Home Medications Medication Instructions Recorded Confirmed Acetaminophen Tab [Tylenol] 650 mg PO Q4H PRN 02/13/18 05/11/18 Albuterol Sulfate [Proair Hfa] 1 puff INHALATION RT-Q4H PRN 02/13/18 05/11/18 Calcium Acetate [PhosLo] 667 mg PO TID@0800,1200,1800 02/13/18 05/11/18 Cholecalciferol (Vitamin D3) 2,000 unit PO DAILY 02/13/18 05/11/18 [Vitamin D3] Demeclocycline HCl 300 mg PO HS 02/13/18 05/11/18 Famotidine [Pepcid] 20 mg PO BID 02/13/18 05/11/18 Magnesium Hydroxide [Milk of 30 ml PO Q72H PRN 02/13/18 05/11/18 Magnesia] Multivitamins, Thera [Multivitamin 1 tab PO HS 02/13/18 05/11/18 (formulary)] Ferrous Sulfate [Feosol] 325 mg PO DAILY 04/07/18 05/11/18 Rivaroxaban [Xarelto] 20 mg PO DAILY 04/07/18 05/11/18 Amiodarone [Cordarone] 200 mg PO DAILY 05/05/18 05/11/18 Fluticasone/Vilanterol [Breo 1 puff INHALATION RT-HS 05/05/18 05/11/18 Ellipta 100-25 Mcg Inhaler] Budesonide [Pulmicort] 1 mg INHALATION RT-BID@0800,1800 05/11/18 05/11/18 Lurasidone HCl [Latuda] 120 mg PO HS 05/11/18 05/11/18 Verapamil [Isoptin] 40 mg PO TID@0800,1200,1800 05/11/18 05/11/18 Allergies Allergy/AdvReac Type Severity Reaction Status Date / Time thiothixene [From Navane] Allergy Unknown Verified 05/11/18 10:29 Review of Systems ROS Statement: Those systems with pertinent positive or pertinent negative responses have been documented in the HPI. ROS Other: All systems not noted in ROS Statement are negative. Past Medical History Past Medical History: COPD, Hypertension Additional Past Medical History / Comment(s): SAIDH. HYPOTENSION, PROTEINURIA, IRON DEFICIENCY ANEMIA,. 'HEART,KIDNEY AND LUNG PROBLEMS'. History of Any Multi-Drug Resistant Organisms: None Reported, Other MDRO Additional Past Surgical History / Comment(s): Thumb Surgery, Heel Surgery Past Anesthesia/Blood Transfusion Reactions: No Reported Reaction Past Psychological History: Anxiety, Bipolar, Schizophrenia Smoking Status: Former smoker Past Alcohol Use History: None Reported Past Drug Use History: None Reported General Exam General appearance: alert, in no apparent distress Head exam: Present: atraumatic, normocephalic, normal inspection Eye exam: Present: normal appearance, PERRL, EOMI. Absent: scleral icterus, conjunctival injection, periorbital swelling ENT exam: Present: normal exam, mucous membranes moist Neck exam: Present: normal inspection. Absent: tenderness, meningismus, lymphadenopathy Respiratory exam: Present: normal lung sounds bilaterally. Absent: respiratory distress, wheezes, rales, rhonchi, stridor Cardiovascular Exam: Present: regular rate, normal rhythm, normal heart sounds. Absent: systolic murmur, diastolic murmur, rubs, gallop, clicks GI/Abdominal exam: Present: soft, normal bowel sounds. Absent: distended, tenderness, guarding, rebound, rigid Extremities exam: Present: normal inspection, full ROM, normal capillary refill. Absent: tenderness, pedal edema, joint swelling, calf tenderness Back exam: Present: normal inspection Neurological exam: Present: alert, oriented X3, CN II-XII intact Psychiatric exam: Present: normal affect, normal mood Skin exam: Present: warm, dry, intact, normal color. Absent: rash Course Vital Signs 05/11/18 09:28 Temperature 97.9 F Pulse Rate 66 Respiratory 18 Rate Blood Pressure 115/71 O2 Sat by Pulse 98 Oximetry - Reevaluation(s) Reevaluation #1: 05/11/18 10:59 Patient's prior laboratories are currently reviewed Reevaluation #2: 05/11/18 10:59 Spoke with interventional radiology, they state that patient need higher hemoglobin for procedure EKG Findings - EKG Comments: EKG Findings:: EKG shows sinus rhythm rate of 64, CT 126, QRS 80, QTC 441 Medical Decision Making - Medical Decision Making 62 male the ER for evaluation, will admit for transfusion, continued evaluation for renal procedure biopsy - Lab Data Result diagrams: 05/11/18 09:45 05/11/18 09:45 Lab Results 05/11/18 05/11/18 05/11/18 Range/Units 09:45 09:45 09:45 WBC 7.9 (3.8-10.6) k/uL RBC 2.57 L (4.30-5.90) m/uL Hgb 7.7 L (13.0-17.5) gm/dL Hct 24.5 L (39.0-53.0) % MCV 95.2 (80.0-100.0) fL MCH 29.8 (25.0-35.0) pg MCHC 31.3 (31.0-37.0) g/dL RDW 17.3 H (11.5-15.5) % Plt Count 522 H (150-450) k/uL Neutrophils % 78 % Lymphocytes % 11 % Monocytes % 7 % Eosinophils % 2 % Basophils % 1 % Neutrophils # 6.2 (1.3-7.7) k/uL Lymphocytes # 0.9 L (1.0-4.8) k/uL Monocytes # 0.6 (0-1.0) k/uL Eosinophils # 0.1 (0-0.7) k/uL Basophils # 0.1 (0-0.2) k/uL Hypochromasia Moderate Anisocytosis Slight PT (9.0-12.0) sec INR (<1.2) APTT (22.0-30.0) sec Sodium 134 L (137-145) mmol/L Potassium 4.0 (3.5-5.1) mmol/L Chloride 100 (98-107) mmol/L Carbon Dioxide 25 (22-30) mmol/L Anion Gap 9 mmol/L BUN 19 (9-20) mg/dL Creatinine 0.83 (0.66-1.25) mg/dL Est GFR (CKD-EPI)AfAm >90 (>60 ml/min/1.73 sqM) Est GFR (CKD-EPI)NonAf >90 (>60 ml/min/1.73 sqM) Glucose 104 H (74-99) mg/dL Calcium 8.8 (8.4-10.2) mg/dL Magnesium 1.7 (1.6-2.3) mg/dL Total Bilirubin 0.8 (0.2-1.3) mg/dL AST 23 (17-59) U/L ALT 23 (21-72) U/L Alkaline Phosphatase 50 (38-126) U/L Total Creatine Kinase <20 L (55-170) U/L CK-MB (CK-2) 0.5 (0.0-2.4) ng/mL CK-MB (CK-2) Rel Index Total Protein 6.6 (6.3-8.2) g/dL Albumin 3.6 (3.5-5.0) g/dL 05/11/18 Range/Units 09:45 WBC (3.8-10.6) k/uL RBC (4.30-5.90) m/uL Hgb (13.0-17.5) gm/dL Hct (39.0-53.0) % MCV (80.0-100.0) fL MCH (25.0-35.0) pg MCHC (31.0-37.0) g/dL RDW (11.5-15.5) % Plt Count (150-450) k/uL Neutrophils % % Lymphocytes % % Monocytes % % Eosinophils % % Basophils % % Neutrophils # (1.3-7.7) k/uL Lymphocytes # (1.0-4.8) k/uL Monocytes # (0-1.0) k/uL Eosinophils # (0-0.7) k/uL Basophils # (0-0.2) k/uL Hypochromasia Anisocytosis PT 11.6 (9.0-12.0) sec INR 1.2 H (<1.2) APTT 33.0 H (22.0-30.0) sec Sodium (137-145) mmol/L Potassium (3.5-5.1) mmol/L Chloride (98-107) mmol/L Carbon Dioxide (22-30) mmol/L Anion Gap mmol/L BUN (9-20) mg/dL Creatinine (0.66-1.25) mg/dL Est GFR (CKD-EPI)AfAm (>60 ml/min/1.73 sqM) Est GFR (CKD-EPI)NonAf (>60 ml/min/1.73 sqM) Glucose (74-99) mg/dL Calcium (8.4-10.2) mg/dL Magnesium (1.6-2.3) mg/dL Total Bilirubin (0.2-1.3) mg/dL AST (17-59) U/L ALT (21-72) U/L Alkaline Phosphatase (38-126) U/L Total Creatine Kinase (55-170) U/L CK-MB (CK-2) (0.0-2.4) ng/mL CK-MB (CK-2) Rel Index Total Protein (6.3-8.2) g/dL Albumin (3.5-5.0) g/dL Disposition Clinical Impression: Anemia, Weakness Disposition: HOME SELF-CARE Condition: Good Is patient prescribed a controlled substance at d/c from ED?: No Referrals: Saurabh Fisher DO [Primary Care Provider] - 1-2 days
[2018-05-11 10:38] LABS: Creatine Kinase <20 U/L (55-170)
[2018-05-11 10:48] LABS: Creatine Kinase MB 0.5 ng/mL (0.0-2.4)
[2018-05-11] MEDS ORDERED: ALBUTEROL NEBULIZED 2.5 MG/3 ML INHALATION PRN (19:52)
[2018-05-11] MEDS ORDERED: ACETAMINOPHEN TAB 325 MG TAB PO PRN (19:52)
[2018-05-11] MEDS ORDERED: NON-FORMULARY DRUG (Fluticasone/Vilanterol [Breo Ellipta 100-25 Mcg Inhaler] 1 PUFF) INHALATION SCH (20:00)
[2018-05-11] MEDS ORDERED: MAGNESIUM HYDROXIDE 2,400 MG/10 ML CUP PO PRN (20:09)
[2018-05-11] MEDS: DEMECLOCYCLINE 150 MG TAB PO SCH (20:37)
[2018-05-11] MEDS: FAMOTIDINE 20 MG TAB PO SCH (20:37)
[2018-05-11] MEDS: LURASIDONE 40 MG TAB PO SCH (20:37)
[2018-05-11] MEDS: MULTIVITAMINS, THERA 1 EACH TAB PO SCH (20:38)
--- NOTE | 2018-05-11 21:07 | HP ---
HISTORY AND PHYSICAL DATE OF SERVICE: 05/21/2018 CHIEF COMPLAINTS: Abnormal labs and anemia. HISTORY OF PRESENT ILLNESS: This 62-year-old gentleman with a past medical history of paroxysmal atrial fibrillation, chronic SIADH, history of COPD, was noted to have anemia previously. In the course of evaluation, renal biopsy was suggested by Dr. Landis. The patient was slated for the renal biopsy today, but hemoglobin was 7.7. Patient was taken to [facility] and was admitted for further evaluation and treatment. There is no history of chest pain. No history of palpitations. No history of headache, loss of consciousness or seizures. PAST MEDICAL HISTORY: 1. History of CHF. 2. History of COPD. 3. GERD. 4. Hypertension. 5. Hyperlipidemia. 6. SIADH. 7. Proteinuria. 8. History of iron deficient anemia. 9. Schizophrenia. 10.Anxiety. 11.Depression. 12.Bipolar. HOME MEDICATIONS: 1. Albuterol 1 puff q.4 p.r.n. 2. Tylenol 650 q.4 p.r.n. 3. Milk of Magnesia 30 mL q.72 hours. 4. Isoptin 40 mg p.o. t.i.d. 5. PhosLo 667 t.i.d. 6. Breo Ellipta 1 puff at bedtime. 7. Pulmicort 1 mg b.i.d. 8. Xarelto 20 mg p.o. daily. 9. Pepcid 20 mg p.o. b.i.d. 10.Multivitamins 1 p.o. daily. 11.Latuda 120 mg p.o. at bedtime. 12.Iron sulfate 325 mg p.o. daily. 13.Demeclocycline 300 mg p.o. at bedtime. 14.Vitamin D3 2000 daily. 15.Cordarone 200 mg p.o. daily. ALLERGIES: NAVANE. FAMILY HISTORY: History of myocardial infarction and lung problems in the family. SOCIAL HISTORY: Previous history of smoking. No current smoking or alcohol intake. REVIEW OF SYSTEMS: ENT: No diminished hearing. No diminished vision. CARDIOVASCULAR SYSTEM: No angina, palpitations. RESPIRATORY SYSTEM: No cough, hemoptysis. GI: As mentioned earlier. : No dysuria or retention. NERVOUS SYSTEM: No numbness, weakness. ALLERGY/IMMUNOLOGY: No asthma, hayfever. MUSCULOSKELETAL: As mentioned earlier. HEMATOLOGY/ONCOLOGY: As mentioned earlier. ENDOCRINE: No history of diabetes, hypothyroidism. CONSTITUTIONAL: As mentioned earlier. DERMATOLOGY: Negative. RHEUMATOLOGY: Negative. PSYCHIATRY: As mentioned earlier. PHYSICAL EXAMINATION: Patient alert and oriented x3. Pulse 65, blood pressure 133/78, respiration 18, temperature 98.6, pulse ox 96% on 2 L. HEENT: Conjunctivae pale. Oral mucosa moist. NECK: No jugular venous distention. No carotid bruit. No lymph node enlargement. CARDIOVASCULAR SYSTEM: S1, S2 muffled. RESPIRATORY SYSTEM: Breath sounds diminished at the bases. No rhonchi. No crackles. ABDOMEN: Soft, non-tender. No mass palpable. LEGS: No edema. No swelling. NERVOUS SYSTEM: Higher functions as mentioned earlier. Moves all 4 limbs. No focal motor or sensory deficit. LYMPHATICS: No lymph node palpable in neck, axillae or groin. SKIN: No ulcer, rash, bleeding. JOINTS: No active deforming arthropathy. LABS: WBC 11.9, hemoglobin 7.7, platelets 522. INR 1.2. Sodium 134. ASSESSMENT: 1. Anemia for evaluation. Rule out gastrointestinal bleed. 2. History of paroxysmal atrial fibrillation. 3. Chronic schizophrenia. 4. Syndrome of inappropriate antidiuretic hormone. 5. Chronic obstructive pulmonary disease. 6. History of congestive heart failure. 7. History of gastroesophageal reflux disease. 8. History of an iron deficiency anemia. 9. History of proteinuria. 10.History of anxiety, bipolar, schizophrenia. RECOMMENDATIONS AND DISCUSSION: In this 62-year-old gentleman who presented with multiple complex medical issues , we will monitor the patient closely. Continue the current medications. Continue symptomatic treatment. Will initiate 1 unit transfusion. Repeat labs. Will hold Xarelto at this time. Otherwise, I would recommend a gastroenterology evaluation as well. Repeat labs will be ordered for tomorrow. Once hemoglobin is improved, I would recommend renal biopsy as well. The prognosis is guarded because of multiple complex medical issues. Further recommendations to follow. Discussed with the family at the bedside. A copy of this dictation is being forwarded to Dr. Fisher, who is the primary physician. MMODL / HUONGN: [id number] / [email or web address]
[2018-05-12] MEDS: CALCIUM ACETATE 667 MG CAP PO SCH ×3 (07:49→17:16)
[2018-05-12] MEDS: CHOLECALCIFEROL 1,000 UNIT TAB PO SCH ×2 (07:49→12:13)
[2018-05-12] MEDS: ENOXAPARIN 40 MG/0.4 ML SYRINGE SQ SCH (07:49)
[2018-05-12] MEDS: FERROUS SULFATE 325 MG TAB PO SCH (07:50)
[2018-05-12] MEDS: FAMOTIDINE 20 MG TAB PO SCH ×2 (07:50→20:51)
[2018-05-12] MEDS: AMIODARONE 200 MG TAB PO SCH (07:55)
[2018-05-12] MEDS: VERAPAMIL 40 MG TAB PO SCH ×3 (07:55→17:16)
[2018-05-12 08:56] LABS: Anisocytosis Slight; Basophils # (A) 0.1 k/uL (0-0.2); Basophils % (A) 1 %; Eosinophils # (A) 0.2 k/uL (0-0.7); Eosinophils % (A) 2 %; HCT 25.6 % (39.0-53.0); HGB 7.8 gm/dL (13.0-17.5); Hypochromasia Marked; Lymphocytes % (A) 14 %; MCH 29.4 pg (25.0-35.0); MCHC 30.4 g/dL (31.0-37.0); MCV 96.6 fL (80.0-100.0); Macrocytosis Slight; Mean Platelet Volume 6.9; Monocytes # (A) 0.6 k/uL (0-1.0); Monocytes % (A) 8 %; Neutrophils % (A) 73 %; Platelet Count 424 k/uL (150-450); Poikilocytosis Slight; RBC 2.65 m/uL (4.30-5.90); RDW 17.5 % (11.5-15.5); WBC 6.9 k/uL (3.8-10.6)
[2018-05-12 09:19] LABS: Anion Gap 7 mmol/L; Blood Urea Nitrogen 16 mg/dL (9-20); Calcium 7.9 mg/dL (8.4-10.2); Carbon Dioxide 21 mmol/L (22-30); Chloride 107 mmol/L (98-107); Glucose 90 mg/dL (74-99); Potassium 3.8 mmol/L (3.5-5.1); Sodium 135 mmol/L (137-145)
--- NOTE | 2018-05-12 09:52 | P.NPCON ---
History of Present Illness - Reason for Consult proteinuria - History of Present Illness Reason for consultation: Hyponatremia History of present illness: Patient is a 62-year-old male seen in renal consultation for hyponatremia and abnormal serologies. 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 Sodium level is stable at 135. He is maintained on fluid restriction and demeclocycline. Additionally he was noted to have sub- nephrotic proteinuria with positive p-ANCA and MPO along with positive JENNY as outpatient. He was scheduled to get a kidney biopsy done yesterday but the procedure was canceled due to hemoglobin being low. Hemoglobin was 7.7 yesterday and is 7.8 today. He denies any melena or hematochezia. Denies any hematemesis. No signs of active bleeding. Oral intake is good. Denies nausea vomiting or diarrhea. Denies regular use of NSAIDs. Denies any rashes. Hemodynamically stable. Vital signs are stable. General: The patient appeared well nourished and normally developed. HEENT: Head exam is unremarkable. Neck is without jugular venous distension. LUNGS: Lungs are clear to auscultation and percussion. Breath sounds decreased. HEART: Rate and Rhythm are regular. First and second heart sounds normal. No murmurs, rubs or gallops. ABDOMEN: Abdominal exam reveals normal bowel sounds. Non-tender and non- distended. No evidence of peritonitis. EXTREMITITES: No clubbing, cyanosis, or edema. Past Medical History Past Medical History: Chest Pain / Angina, Heart Failure, COPD, GERD/Reflux, Hypertension, Pneumonia Additional Past Medical History / Comment(s): SAIDH. HYPOTENSION, PROTEINURIA, IRON DEFICIENCY ANEMIA, hx of gout, schizophrenia/anxiety/depression. 'HEART, KIDNEY AND LUNG PROBLEMS'. History of Any Multi-Drug Resistant Organisms: None Reported, Other MDRO Additional Past Surgical History / Comment(s): partial lt thumb amputaion,, Heel Surgery sx-pin in place Past Anesthesia/Blood Transfusion Reactions: No Reported Reaction Additional Past Anesthesia/Blood Transfusion Reaction / Comment(s): clausterphobia Smoking Status: Former smoker - Past Family History Mother Family Medical History: Myocardial Infarction ([place]) Father Family Medical History: Pneumonia Additional Family Medical History / Comment(s): "lung problems" Medications and Allergies Home Medications Medication Instructions Recorded Confirmed Type Acetaminophen Tab [Tylenol] 650 mg PO Q4H PRN 02/13/18 05/11/18 History Albuterol Sulfate [Proair Hfa] 1 puff INHALATION RT-Q4H PRN 02/13/18 05/11/18 History Calcium Acetate [PhosLo] 667 mg PO TID@0800,1200,1800 02/13/18 05/11/18 History Cholecalciferol (Vitamin D3) 2,000 unit PO DAILY 02/13/18 05/11/18 History [Vitamin D3] Demeclocycline HCl 300 mg PO HS 02/13/18 05/11/18 History Famotidine [Pepcid] 20 mg PO BID 02/13/18 05/11/18 History Magnesium Hydroxide [Milk of 30 ml PO Q72H PRN 02/13/18 05/11/18 History Magnesia] Multivitamins, Thera [Multivitamin 1 tab PO HS 02/13/18 05/11/18 History (formulary)] Ferrous Sulfate [Feosol] 325 mg PO DAILY 04/07/18 05/11/18 History Rivaroxaban [Xarelto] 20 mg PO DAILY 04/07/18 05/11/18 History Amiodarone [Cordarone] 200 mg PO DAILY 05/05/18 05/11/18 History Fluticasone/Vilanterol [Breo 1 puff INHALATION RT-HS 05/05/18 05/11/18 History Ellipta 100-25 Mcg Inhaler] Budesonide [Pulmicort] 1 mg INHALATION RT-BID@0800,1800 05/11/18 05/11/18 History Lurasidone HCl [Latuda] 120 mg PO HS 05/11/18 05/11/18 History Verapamil [Isoptin] 40 mg PO TID@0800,1200,1800 05/11/18 05/11/18 History Allergies Allergy/AdvReac Type Severity Reaction Status Date / Time thiothixene [From Navane] Allergy Unknown Verified 05/11/18 10:29 wool AdvReac Itching Uncoded 05/11/18 20:54 Physical Exam Vitals: Vital Signs Temp Pulse Pulse Pulse Resp BP BP 05/12/18 08:18 63 20 05/12/18 08:16 98.1 F 63 20 101/61 05/12/18 05:35 98.0 F 70 16 175/78 05/11/18 21:11 97.8 F 72 16 180/81 05/11/18 19:23 98.6 F 65 18 153/78 05/11/18 18:00 98.0 F 61 18 148/81 05/11/18 15:00 98.0 F 68 18 149/80 05/11/18 14:50 98.5 F 61 18 152/80 05/11/18 13:11 98.5 F 65 16 146/67 05/11/18 12:41 97.9 F 63 18 145/71 05/11/18 12:31 98.3 F 63 18 144/73 05/11/18 12:28 98.0 F 63 18 154/74 05/11/18 11:02 63 18 132/67 Pulse Ox 05/12/18 08:18 05/12/18 08:16 93 L 05/12/18 05:35 98 05/11/18 21:11 97 05/11/18 19:23 96 05/11/18 18:00 98 05/11/18 15:00 98 05/11/18 14:50 05/11/18 13:11 05/11/18 12:41 98 05/11/18 12:31 05/11/18 12:28 05/11/18 11:02 98 Intake and Output 05/11/18 05/12/18 05/12/18 22:59 06:59 14:59 Intake Total 800 Output Total 450 Balance 350 Intake: IV 800 Sodium Chloride 0.9% 1, 800 000 ml @ 100 mls/hr IV . Q10H STA Rx#:[id number] Output: Urine 450 Other: Voiding Method Urinal Urinal Urinal Incontinent Incontinent # Voids 1 Results - Lab Results Most recent lab results Calcium 7.9 mg/dL (8.4-10.2) L 05/12/18 08:26 Magnesium 1.7 mg/dL (1.6-2.3) 05/11/18 09:45 05/12/18 08:26 05/12/18 08:26 Assessment and Plan Plan: Assessment: 1. Hyponatremia secondary to psychogenic polydipsia. Sodium level stable at 135 today. 2. Anemia. Rule out iron deficiency. No signs of active bleeding noted. 3. Subnephrotic proteinuria with Positive JENNY and pANCA/MPO scheduled for kidney biopsy - canceled due to anemia. 4. Diastolic CHF with severe pulmonary hypertension. 5. Paroxysmal atrial fibrillation maintained on amiodarone and verapamil. Plan: Check iron studies. 1200 mL fluid restriction. Encouraged oral intake. Awaits kidney biopsy. Thank you for the consultation. I will continue to follow the patient with you during his hospital stay.
--- NOTE | 2018-05-12 10:00 | P.CONS ---
History of Present Illness - Reason for Consult Consult date: 05/12/18 Anemia Requesting physician: Aziza Delgado - History of Present Illness 62-year-old male with a history of psychogenic polydipsia, atrial fibrillation maintained on Xarelto, CHF, schizophrenia, some nephrotic proteinuria with positive p-ANCA, JENNY and MPO admitted secondary to abnormal CBC. He was scheduled for outpatient kidney biopsy yesterday but canceled due to a low hemoglobin of 7.0 admitted for further evaluation. Denies overt bleeding such as hematemesis hematochezia melena. Denies weight loss fever chills or abdominal pain. No history of peptic ulcer disease. No history of EGD colonoscopy. Reports more weakness lately but would not elaborate. He uses a wheelchair for mobility secondary to weakness. Admission hemoglobin 7. MCV 99. Platelet for 72. INR 1.2. BUN 18. Creatinine 0.8. Iron saturation 8%. Ferritin 236. Iron 24. TIBC 271. Received 1 unit of blood current hemoglobin 7.8. No aspirin and NSAIDs or alcohol. Previous hemoglobin in February was in the 12 range decreased to 8.2 on 03/19/2018. Home medications include but not limited to Xarelto, Pepcid, Feosol. Review of Systems Constitutional: Denies fever, chills, sweats, weight gain, or loss. HEENT: Negative for migraines, blurred vision or loss, earaches, drainage, tinnitus, oral mucosal lesions, dysphagia, or odynophagia. Cardiac: Negative for chest pain, arrhythmias, or palpitation. Respiratory: Negative for shortness of breath, hemoptysis, cough, or sputum production. Gastrointestinal: See HPI for pertinent findings. Genitourinary: Negative for hematuria, urgency, frequency, polyuria, dysuria, or penile discharge. Musculoskeletal: Negative for muscle aches, swelling, arthritis, and arthralgias. Neurologic: Negative for stroke or TIA. Endocrine: Negative for thyroid problems. Skin: Negative for rash or itching. Psychiatric: History of schizophrenia Past Medical History Past Medical History: Chest Pain / Angina, Heart Failure, COPD, GERD/Reflux, Hypertension, Pneumonia Additional Past Medical History / Comment(s): SAIDH. HYPOTENSION, PROTEINURIA, IRON DEFICIENCY ANEMIA, hx of gout, schizophrenia/anxiety/depression. 'HEART, KIDNEY AND LUNG PROBLEMS'. History of Any Multi-Drug Resistant Organisms: None Reported, Other MDRO Additional Past Surgical History / Comment(s): partial lt thumb amputaion,, Heel Surgery sx-pin in place Past Anesthesia/Blood Transfusion Reactions: No Reported Reaction Additional Past Anesthesia/Blood Transfusion Reaction / Comm: clausterphobia Smoking Status: Former smoker - Past Family History Mother Family Medical History: Myocardial Infarction (VT) Father Family Medical History: Pneumonia Additional Family Medical History / Comment(s): "lung problems" Medications and Allergies Home Medications Medication Instructions Recorded Confirmed Type Acetaminophen Tab [Tylenol] 650 mg PO Q4H PRN 02/13/18 05/11/18 History Albuterol Sulfate [Proair Hfa] 1 puff INHALATION RT-Q4H PRN 02/13/18 05/11/18 History Calcium Acetate [PhosLo] 667 mg PO TID@0800,1200,1800 02/13/18 05/11/18 History Cholecalciferol (Vitamin D3) 2,000 unit PO DAILY 02/13/18 05/11/18 History [Vitamin D3] Demeclocycline HCl 300 mg PO HS 02/13/18 05/11/18 History Famotidine [Pepcid] 20 mg PO BID 02/13/18 05/11/18 History Magnesium Hydroxide [Milk of 30 ml PO Q72H PRN 02/13/18 05/11/18 History Magnesia] Multivitamins, Thera [Multivitamin 1 tab PO HS 02/13/18 05/11/18 History (formulary)] Ferrous Sulfate [Feosol] 325 mg PO DAILY 04/07/18 05/11/18 History Rivaroxaban [Xarelto] 20 mg PO DAILY 04/07/18 05/11/18 History Amiodarone [Cordarone] 200 mg PO DAILY 05/05/18 05/11/18 History Fluticasone/Vilanterol [Breo 1 puff INHALATION RT-HS 05/05/18 05/11/18 History Ellipta 100-25 Mcg Inhaler] Budesonide [Pulmicort] 1 mg INHALATION RT-BID@0800,1800 05/11/18 05/11/18 History Lurasidone HCl [Latuda] 120 mg PO HS 05/11/18 05/11/18 History Verapamil [Isoptin] 40 mg PO TID@0800,1200,1800 05/11/18 05/11/18 History Allergies Allergy/AdvReac Type Severity Reaction Status Date / Time thiothixene [From [facility]] Allergy Unknown Verified 05/11/18 10:29 wool AdvReac Itching Uncoded 05/11/18 20:54 Physical Exam Vitals: Vital Signs Temp Pulse Pulse Pulse Resp BP BP 05/12/18 08:18 63 20 05/12/18 08:16 98.1 F 63 20 101/61 05/12/18 05:35 98.0 F 70 16 175/78 05/11/18 21:11 97.8 F 72 16 180/81 05/11/18 19:23 98.6 F 65 18 153/78 05/11/18 18:00 98.0 F 61 18 148/81 05/11/18 15:00 98.0 F 68 18 149/80 05/11/18 14:50 98.5 F 61 18 152/80 05/11/18 13:11 98.5 F 65 16 146/67 05/11/18 12:41 97.9 F 63 18 145/71 05/11/18 12:31 98.3 F 63 18 144/73 05/11/18 12:28 98.0 F 63 18 154/74 05/11/18 11:02 63 18 132/67 Pulse Ox 05/12/18 08:18 05/12/18 08:16 93 L 05/12/18 05:35 98 05/11/18 21:11 97 05/11/18 19:23 96 05/11/18 18:00 98 05/11/18 15:00 98 05/11/18 14:50 05/11/18 13:11 05/11/18 12:41 98 05/11/18 12:31 05/11/18 12:28 05/11/18 11:02 98 Intake and Output 05/11/18 05/12/18 05/12/18 22:59 06:59 14:59 Intake Total 800 Output Total 450 Balance 350 Intake: IV 800 Sodium Chloride 0.9% 1, 800 000 ml @ 100 mls/hr IV . Q10H STA Rx#:[id number] Output: Urine 450 Other: Voiding Method Urinal Urinal Urinal Incontinent Incontinent # Voids 1 General appearance: The patient is alert, oriented, in no acute distress. HET: Head is normocephalic and atraumatic. Pupils are equal and reactive. Oropharynx is clear without lesions. Neck: Supple without lymphadenopathy. Trachea midline. Heart: S1 S2. Regular rate and rhythm. Lungs: No crackles or wheezes are heard. Abdomen: Soft, nontender, nondistended with bowel sounds. No peritoneal signs. No palpable organomegaly or masses. Extremities: Normal skin color and turgor. No cyanosis, rash, ulceration, clubbing, or edema. Radial and pedal pulses are 2/4 bilaterally. Neurological: No focal deficits. Strength and sensation are grossly intact. Results CBC & Chem 7: 05/12/18 08:26 05/12/18 08:26 Labs: Abnormal Lab Results - Last 24 Hours (Table) 05/11/18 05/11/18 05/11/18 Range/Units 09:45 09:45 09:45 RBC 2.57 L (4.30-5.90) m/uL Hgb 7.7 L (13.0-17.5) gm/dL Hct 24.5 L (39.0-53.0) % MCHC (31.0-37.0) g/dL RDW 17.3 H (11.5-15.5) % Plt Count 522 H (150-450) k/uL Lymphocytes # 0.9 L (1.0-4.8) k/uL INR (<1.2) APTT (22.0-30.0) sec Sodium 134 L (137-145) mmol/L Carbon Dioxide (22-30) mmol/L Glucose 104 H (74-99) mg/dL Calcium (8.4-10.2) mg/dL Total Creatine Kinase <20 L (55-170) U/L Crossmatch 05/11/18 05/11/18 05/12/18 Range/Units 09:45 10:00 08:26 RBC 2.65 L (4.30-5.90) m/uL Hgb 7.8 L (13.0-17.5) gm/dL Hct 25.6 L (39.0-53.0) % MCHC 30.4 L (31.0-37.0) g/dL RDW 17.5 H (11.5-15.5) % Plt Count (150-450) k/uL Lymphocytes # (1.0-4.8) k/uL INR 1.2 H (<1.2) APTT 33.0 H (22.0-30.0) sec Sodium (137-145) mmol/L Carbon Dioxide (22-30) mmol/L Glucose (74-99) mg/dL Calcium (8.4-10.2) mg/dL Total Creatine Kinase (55-170) U/L Crossmatch See Detail 05/12/18 Range/Units 08:26 RBC (4.30-5.90) m/uL Hgb (13.0-17.5) gm/dL Hct (39.0-53.0) % MCHC (31.0-37.0) g/dL RDW (11.5-15.5) % Plt Count (150-450) k/uL Lymphocytes # (1.0-4.8) k/uL INR (<1.2) APTT (22.0-30.0) sec Sodium 135 L (137-145) mmol/L Carbon Dioxide 21 L (22-30) mmol/L Glucose (74-99) mg/dL Calcium 7.9 L (8.4-10.2) mg/dL Total Creatine Kinase (55-170) U/L Crossmatch Assessment and Plan Assessment: Impression: 1. Symptomatic iron deficiency anemia with weakness hemoglobin 12.3 decreased to 7.0 over last 2 months underlying GI cause cannot be entirely excluded presently without overt symptoms of bleeding such as hematemesis hematochezia or melena. 2. Psychogenic polydipsia. 3. Suspect nephrotic proteinuria kidney biopsy presently on hold. 4. Paroxysmal atrial fibrillation maintained on Xarelto. Recommendations: 1. EGD colonoscopy advised and will discuss with patient's guardian/brother. At this time patient is refusing endoscopic workup. Continue to monitor CBC closely. Hemoccult stool testing requested. Continue with iron supplementation. Will follow with you. Anticoagulation will need to be held 2 days prior to endoscopic evaluation. Thank you for this kind referral and the opportunity to participate in the care of your patient. This consultation was discussed with Dr. Jeter. The impression and plan of care have been directed as dictated.
[2018-05-12] MEDS: BUDESONIDE 1 MG/2 ML NEBU INHALATION SCH ×2 (11:11→19:35)
[2018-05-12 14:06] VITALS: BMI 22.1
[2018-05-12 16:56] LABS: Iron Saturation 12.05 (15.00-50.00)
--- NOTE | 2018-05-12 17:26 | PN ---
PROGRESS NOTE DATE OF SERVICE: 05/12/2018. HISTORY: This 62-year-old gentleman admitted with anemia, is slated to have a kidney biopsy. Hemoglobin is 7.8. Radiology will not do the kidney biopsy at that hemoglobin level. GI evaluation in progress. The patient apparently refused some of the investigations. No chest pain or palpitations. PHYSICAL EXAM: On exam, alert, and oriented times two. Pulse 58, blood pressure 125/60, respirations 18, temperature 98.4, pulse ox 98% on room air. HEENT: Conjunctivae pale. Oral mucosa moist. NECK: No jugular venous distention. No carotid bruit. LYMPH: No palpable lymph nodes. CARDIOVASCULAR: S1 and S2 muffled. LUNGS: Breath sounds diminished at the bases. No rhonchi, no crackles. ABDOMEN: Soft, nontender. EXTREMITIES: Legs are no edema, no swelling. NERVOUS SYSTEM: No focal deficits. LAB STUDIES: WBC 6, hemoglobin 7.2, sodium 135. ASSESSMENT: 1. Anemia, for evaluation, rule out gastrointestinal bleed. 2. History of paroxysmal atrial fibrillation. 3. Chronic schizophrenia. 4. Syndrome of inappropriate antidiuretic hormone. 5. Proteinuria, for renal biopsy. 6. Chronic obstructive pulmonary disease. 7. History of congestive heart failure. 8. Gastroesophageal reflux disease. 9. History of iron deficiency anemia. 10.History of anxiety, bipolar, schizophrenia. RECOMMENDATIONS: Recommend to continue current management and GI workup as recommended. Otherwise repeat hemoglobin tomorrow. Prognosis guarded. Further recommendations to follow. MMODL / IJN: [id number] /
[2018-05-12] MEDS: MULTIVITAMINS, THERA 1 EACH TAB PO SCH (20:51)
[2018-05-12] MEDS: DEMECLOCYCLINE 150 MG TAB PO SCH (20:51)
[2018-05-12] MEDS: LURASIDONE 40 MG TAB PO SCH (20:51)
[2018-05-13] MEDS: BUDESONIDE 1 MG/2 ML NEBU INHALATION SCH ×2 (07:38→19:32)
[2018-05-13 08:33] LABS: Anisocytosis Slight; Basophils # (A) 0.1 k/uL (0-0.2); Basophils % (A) 1 %; Eosinophils # (A) 0.2 k/uL (0-0.7); Eosinophils % (A) 2 %; HCT 27.5 % (39.0-53.0); HGB 8.5 gm/dL (13.0-17.5); Hypochromasia Moderate; Lymphocytes # (A) 1.1 k/uL (1.0-4.8); Lymphocytes % (A) 13 %; MCH 29.3 pg (25.0-35.0); MCHC 30.8 g/dL (31.0-37.0); MCV 95.2 fL (80.0-100.0); Monocytes # (A) 0.7 k/uL (0-1.0); Monocytes % (A) 9 %; Neutrophils # (A) 6.3 k/uL (1.3-7.7); Neutrophils % (A) 74 %; Platelet Count 503 k/uL (150-450); Poikilocytosis Slight; RBC 2.88 m/uL (4.30-5.90); RDW 17.4 % (11.5-15.5); WBC 8.5 k/uL (3.8-10.6)
[2018-05-13] MEDS: AMIODARONE 200 MG TAB PO SCH (08:49)
[2018-05-13] MEDS: FAMOTIDINE 20 MG TAB PO SCH ×2 (08:49→20:09)
[2018-05-13] MEDS: VERAPAMIL 40 MG TAB PO SCH ×3 (08:49→20:09)
[2018-05-13] MEDS: CALCIUM ACETATE 667 MG CAP PO SCH ×3 (08:49→20:09)
[2018-05-13] MEDS: FERROUS SULFATE 325 MG TAB PO SCH (08:50)
[2018-05-13] MEDS: CHOLECALCIFEROL 1,000 UNIT TAB PO SCH (08:50)
[2018-05-13 08:58] LABS: Anion Gap 7 mmol/L; Blood Urea Nitrogen 15 mg/dL (9-20); Calcium 8.2 mg/dL (8.4-10.2); Carbon Dioxide 25 mmol/L (22-30); Chloride 102 mmol/L (98-107); Glucose 88 mg/dL (74-99); Magnesium 1.6 mg/dL (1.6-2.3); Sodium 134 mmol/L (137-145)
--- NOTE | 2018-05-13 10:34 | P.PN ---
Subjective Progress Note Date: 05/13/18 Principal diagnosis: Anemia No active bleeding per nursing staff. Patient refuses endoscopic exams. Hemoglobin 8.5. No bowel movements. Objective - Vital Signs Vital signs: Vital Signs Temp 98.4 F 05/13/18 07:29 Pulse 61 05/13/18 07:29 Resp 24 05/13/18 07:29 BP 95/58 05/13/18 07:29 Pulse Ox 96 05/13/18 07:29 Intake & Output 05/12/18 05/13/18 05/13/18 18:59 06:59 18:59 Intake Total 240 Output Total 300 Balance -300 240 Weight 62.051 kg Intake: Oral 240 Output: Urine 300 Other: Voiding Method Urinal Urinal # Voids 1 1 - Exam General appearance: The patient is alert, oriented, in no acute distress. HET: Head is normocephalic and atraumatic. Pupils are equal and reactive. Oropharynx is clear without lesions. Neck: Supple without lymphadenopathy. Trachea midline. Heart: S1 S2. Regular rate and rhythm. Lungs: No crackles or wheezes are heard. Abdomen: Soft, nontender, nondistended with bowel sounds. No peritoneal signs. No palpable organomegaly or masses. Extremities: Normal skin color and turgor. No cyanosis, rash, ulceration, clubbing, or edema. Radial and pedal pulses are 2/4 bilaterally. Neurological: No focal deficits. Strength and sensation are grossly intact. - Labs CBC & Chem 7: 05/13/18 07:45 05/13/18 07:45 Labs: Abnormal Lab Results - Last 24 Hours (Table) 05/12/18 05/13/18 05/13/18 Range/Units 08:26 07:45 07:45 RBC 2.88 L (4.30-5.90) m/uL Hgb 8.5 L (13.0-17.5) gm/dL Hct 27.5 L (39.0-53.0) % MCHC 30.8 L (31.0-37.0) g/dL RDW 17.4 H (11.5-15.5) % Plt Count 503 H (150-450) k/uL Sodium 134 L (137-145) mmol/L Calcium 8.2 L (8.4-10.2) mg/dL Iron 30 L (65-175) ug/dL Iron Saturation 12.05 L (15.00-50.00) Assessment and Plan Assessment: Impression: 1. Symptomatic iron deficiency anemia with weakness hemoglobin 12.3 decreased to 7.0 over last 2 months underlying GI cause cannot be entirely excluded presently without overt symptoms of bleeding such as hematemesis hematochezia or melena. 2. Psychogenic polydipsia. 3. Suspect nephrotic proteinuria kidney biopsy presently on hold. 4. Paroxysmal atrial fibrillation maintained on Xarelto. Recommendations: 1. EGD colonoscopy advised and will discuss with patient's guardian/brother. At this time patient is refusing endoscopic workup. Continue to monitor CBC closely. Hemoccult stool testing requested. Continue with iron supplementation. Will follow with you. Anticoagulation will need to be held 2 days prior to endoscopic evaluation. Assessment and plan a care discussed with Dr. Jeter
--- NOTE | 2018-05-13 11:27 | P.PN ---
Subjective Patient is seen in follow-up for hyponatremia. Sodium level stable at 134. Patient presented to the hospital for anemia. Hemoglobin stable at 8.5. He denies any melena or hematochezia. He is refusing endoscopy studies. GFR is at baseline. Vital signs are stable. General: The patient appeared well nourished and normally developed. HEENT: Head exam is unremarkable. Neck is without jugular venous distension. LUNGS: Lungs are clear to auscultation and percussion. Breath sounds decreased. HEART: Rate and Rhythm are regular. First and second heart sounds normal. No murmurs, rubs or gallops. ABDOMEN: Abdominal exam reveals normal bowel sounds. Non-tender and non- distended. No evidence of peritonitis. EXTREMITITES: No clubbing, cyanosis, or edema. Objective - Vital Signs Vital signs: Vital Signs Temp 98.4 F 05/13/18 07:29 Pulse 61 05/13/18 07:29 Resp 24 05/13/18 07:29 BP 95/58 05/13/18 07:29 Pulse Ox 96 05/13/18 07:29 Intake & Output 05/12/18 05/13/18 05/13/18 18:59 06:59 18:59 Intake Total 240 Output Total 300 Balance -300 240 Weight 62.051 kg Intake: Oral 240 Output: Urine 300 Other: Voiding Method Urinal Urinal # Voids 1 1 - Labs CBC & Chem 7: 05/13/18 07:45 05/13/18 07:45 Labs: Abnormal Lab Results - Last 24 Hours (Table) 05/12/18 05/13/18 05/13/18 Range/Units 08:26 07:45 07:45 RBC 2.88 L (4.30-5.90) m/uL Hgb 8.5 L (13.0-17.5) gm/dL Hct 27.5 L (39.0-53.0) % MCHC 30.8 L (31.0-37.0) g/dL RDW 17.4 H (11.5-15.5) % Plt Count 503 H (150-450) k/uL Sodium 134 L (137-145) mmol/L Calcium 8.2 L (8.4-10.2) mg/dL Iron 30 L (65-175) ug/dL Iron Saturation 12.05 L (15.00-50.00) Assessment and Plan Plan: Assessment: 1. Hyponatremia secondary to psychogenic polydipsia. Sodium level stable at 134 today. 2. Anemia. Iron deficiency noted. No signs of active bleeding noted. Refusing endoscopy. GI following. 3. Subnephrotic proteinuria with Positive JENNY and pANCA/MPO scheduled for kidney biopsy - canceled due to anemia. 4. Diastolic CHF with severe pulmonary hypertension. 5. Paroxysmal atrial fibrillation maintained on amiodarone and verapamil. Plan: Ferrlecit 125 mg IV daily for 3 days. First dose today. 1200 mL fluid restriction. Encouraged oral intake. Awaits kidney biopsy.
[2018-05-13] MEDS: SODIUM FERRIC GLUCONAT-SUCROSE 125 MG in SODIUM CHLORIDE 0.9% 100 ML IVPB SCH (13:28)
[2018-05-13] MEDS: ENOXAPARIN 40 MG/0.4 ML SYRINGE SQ SCH (13:30)
--- NOTE | 2018-05-13 18:21 | DS ---
DISCHARGE SUMMARY FINAL DIAGNOSES: 1. Anemia rule out gastrointestinal bleed. 2. History of paroxysmal atrial fibrillation. 3. Chronic proteinuria for renal biopsy. 4. Syndrome of inappropriate antidiuretic hormone. 5. Chronic obstructive pulmonary disease. 6. History of congestive heart failure. 7. Gastroesophageal reflux disease. 8. History of iron deficiency anemia. 9. History of anxiety, bipolar, and bipolar schizophrenia. DISCHARGE DISPOSITION: The patient is being discharged in stable condition with guarded prognosis. HISTORY OF PRESENT ILLNESS: This 62-year-old gentleman with a past medical history of multiple medical problems was admitted with anemia. The patient slated to have renal biopsy, which is deferred because of the anemia. Gastroenterology was consulted and recommended EGD and colonoscopy, but the patient refused at this time. The patient is being discharged in stable condition with guarded prognosis. The plan will be to start iron tablets at home and repeat hemoglobin. Once hemoglobin is improved, the patient can have renal biopsy as an outpatient procedure. Otherwise, given the patient is willing, the patient and will need Gastroenterology evaluation and outpatient EGD and colonoscopy. On exam, vital signs are stable. Cardiovascular: S1, S2. Abdomen soft. Central nervous system: No focal deficits. Discussed at length with the patient and the patient's brother. DISCHARGE ADVICE AND MEDICATIONS: 1. Discharge diet is cardiac diet. 2. Activity limited until followup. 3. Follow up with. MEDICATIONS: 1. Tylenol 650 q.4h p.r.n. 2. ProAir 1 puff q.6h p.r.n. 3. Cordarone 200 mg b.i.d. 4. Pulmicort 1 mg daily. 5. PhosLo 667 p.o. t.i.d. 6. Vitamin D3 2000 daily. 7. Demeclocycline 300 mg q.h.s. 8. Pepcid 20 mg p.o. b.i.d. 9. Iron sulfate 320 mg daily. 10.Breo Ellipta 1 puff daily. 11.Latuda 120 mg q.h.s. 12.Magnesium oxide 30 mL every 72 hours. 13.Multivitamins 1 p.o. daily. 14.Xarelto 20 mg p.o. daily. 15.Isoptin 40 mg p.o. daily. Followup with Dr. Whitehead and Dr. Fisher as recommended as an outpatient. MMODL / IJN: [id number] / SLOAN
[2018-05-13] MEDS: LURASIDONE 40 MG TAB PO SCH (20:09)
[2018-05-13] MEDS: DEMECLOCYCLINE 150 MG TAB PO SCH (20:09)
[2018-05-13] MEDS: MULTIVITAMINS, THERA 1 EACH TAB PO SCH (20:09)
[2018-05-14 07:18] VITALS: RESP 16
[2018-05-14] MEDS: BUDESONIDE 1 MG/2 ML NEBU INHALATION SCH (07:34)
[2018-05-14 07:56] LABS: Anisocytosis Slight; Basophils # (A) 0.1 k/uL (0-0.2); Basophils % (A) 1 %; Eosinophils # (A) 0.1 k/uL (0-0.7); Eosinophils % (A) 2 %; HCT 28.1 % (39.0-53.0); HGB 8.6 gm/dL (13.0-17.5); Hypochromasia Moderate; Lymphocytes # (A) 0.8 k/uL (1.0-4.8); Lymphocytes % (A) 13 %; MCH 29.1 pg (25.0-35.0); MCHC 30.7 g/dL (31.0-37.0); MCV 94.7 fL (80.0-100.0); Monocytes # (A) 0.6 k/uL (0-1.0); Monocytes % (A) 10 %; Neutrophils # (A) 4.4 k/uL (1.3-7.7); Neutrophils % (A) 72 %; Platelet Count 467 k/uL (150-450); Poikilocytosis Slight; RBC 2.97 m/uL (4.30-5.90); RDW 16.9 % (11.5-15.5)
[2018-05-14 08:29] LABS: Anion Gap 8 mmol/L; Blood Urea Nitrogen 14 mg/dL (9-20); Calcium 8.8 mg/dL (8.4-10.2); Carbon Dioxide 26 mmol/L (22-30); Chloride 100 mmol/L (98-107); Glucose 89 mg/dL (74-99); Potassium 4.2 mmol/L (3.5-5.1); Sodium 134 mmol/L (137-145)
[2018-05-14] MEDS: SODIUM FERRIC GLUCONAT-SUCROSE 125 MG in SODIUM CHLORIDE 0.9% 100 ML IVPB SCH (08:48)
[2018-05-14] MEDS: AMIODARONE 200 MG TAB PO SCH (08:48)
[2018-05-14] MEDS: ENOXAPARIN 40 MG/0.4 ML SYRINGE SQ SCH (08:48)
[2018-05-14] MEDS: VERAPAMIL 40 MG TAB PO SCH ×2 (08:49→13:03)
[2018-05-14] MEDS: CHOLECALCIFEROL 1,000 UNIT TAB PO SCH (08:49)
[2018-05-14] MEDS: FERROUS SULFATE 325 MG TAB PO SCH (08:49)
[2018-05-14] MEDS: FAMOTIDINE 20 MG TAB PO SCH (08:49)
[2018-05-14] MEDS: CALCIUM ACETATE 667 MG CAP PO SCH ×2 (08:49→13:03)
--- NOTE | 2018-05-14 10:53 | P.PN ---
Subjective Patient is seen in follow-up for hyponatremia. Sodium level stable at 134. Patient presented to the hospital for anemia. Hemoglobin stable at 8.6. He denies any melena or hematochezia. He is refusing endoscopy studies. GFR is at baseline. Vital signs are stable. General: The patient appeared well nourished and normally developed. HEENT: Head exam is unremarkable. Neck is without jugular venous distension. LUNGS: Lungs are clear to auscultation and percussion. Breath sounds decreased. HEART: Rate and Rhythm are regular. First and second heart sounds normal. No murmurs, rubs or gallops. ABDOMEN: Abdominal exam reveals normal bowel sounds. Non-tender and non- distended. No evidence of peritonitis. EXTREMITITES: No clubbing, cyanosis, or edema. Objective - Vital Signs Vital signs: Vital Signs Temp 98 F 05/14/18 06:20 Pulse 59 L 05/14/18 06:20 Resp 16 05/14/18 06:20 BP 129/64 05/14/18 06:20 Pulse Ox 98 05/14/18 06:20 Intake & Output 05/13/18 05/14/18 05/14/18 18:59 06:59 18:59 Output Total 1100 450 Balance -1100 -450 Weight 62.051 kg 61 kg Output: Urine 1100 450 Other: Voiding Method Urinal Urinal Diaper # Voids 1 3 - Labs CBC & Chem 7: 05/14/18 07:14 05/14/18 07:14 Labs: Abnormal Lab Results - Last 24 Hours (Table) 05/14/18 05/14/18 Range/Units 07:14 07:14 RBC 2.97 L (4.30-5.90) m/uL Hgb 8.6 L (13.0-17.5) gm/dL Hct 28.1 L (39.0-53.0) % MCHC 30.7 L (31.0-37.0) g/dL RDW 16.9 H (11.5-15.5) % Plt Count 467 H (150-450) k/uL Lymphocytes # 0.8 L (1.0-4.8) k/uL Sodium 134 L (137-145) mmol/L Assessment and Plan Plan: Assessment: 1. Hyponatremia secondary to psychogenic polydipsia. Sodium level stable at 134 today. 2. Anemia. Iron deficiency noted. No signs of active bleeding noted. Refusing endoscopy. GI following. 3. Subnephrotic proteinuria with Positive JENNY and pANCA/MPO scheduled for kidney biopsy - canceled due to anemia. 4. Diastolic CHF with severe pulmonary hypertension. 5. Paroxysmal atrial fibrillation maintained on amiodarone and verapamil. Plan: Ferrlecit 125 mg IV daily for 3 days. Second dose today. 1200 mL fluid restriction. Encouraged oral intake. Awaits kidney biopsy, which can be scheduled as an outpatient.
[2018-05-14 15:05] VITALS: BP 131/65; PULSE 57; TEMP 98.2
== END 2018-05-14 15:55 ==
LOC: EC 09:20 → EEVIPCON 11:21 → 4MS4W 11:21 → 5MS5E 19:00
PROVIDERS: ADMIT Hospitalist; ATTEND Hospitalist
DX: D64.9 Anemia, unspecified (principal); I48.0 Paroxysmal atrial fibrillation; R80.9 Proteinuria, unspecified; E22.2 Syndrome of inappropriate secretion of antidiuretic hormone; J44.9 Chronic obstructive pulmonary disease, unspecified; K21.9 Gastro-esophageal reflux disease without esophagitis; D50.9 Iron deficiency anemia, unspecified; F20.9 Schizophrenia, unspecified; F41.9 Anxiety disorder, unspecified; F31.9 Bipolar disorder, unspecified; I27.20 Pulmonary hypertension, unspecified; R63.1 Polydipsia; M10.9 Gout, unspecified; Z79.899 Other long term (current) drug therapy; Z79.51 Long term (current) use of inhaled steroids; Z79.01 Long term (current) use of anticoagulants; I50.30 Unspecified diastolic (congestive) heart failure; I11.0 Hypertensive heart disease with heart failure; E78.5 Hyperlipidemia, unspecified; Z87.891 Personal history of nicotine dependence; Z82.49 Family history of ischemic heart disease and other diseases of the circulatory system; Z83.6 Family history of other diseases of the respiratory system; Z53.9 Procedure and treatment not carried out, unspecified reason; Z87.01 Personal history of pneumonia (recurrent); Z88.8 Allergy status to other drugs, medicaments and biological substances; Z91.048 Other nonmedicinal substance allergy status; Z99.3 Dependence on wheelchair
CPT/HCPCS: 99285 ×2; 96361 ×12; 36430; 96365; 96366; 96372 ×2; 36415 ×2; 93005; 86900; 86901; 80053; 80048 ×3; 82728 ×2; 82550; 82553; 83540 ×2; 83550 ×2; 83735 ×2; 85025 ×4; 85610; 85730; 86850; 86920; G0378 ×4; P9016; J1650 ×2; J2916 ×2

== ENCOUNTER → 2018-05-11 | Day surgery (SDC) | payer MEDICARE, OTHER | LOC: RADPROMAIN 08:59 | PROVIDERS: ATTEND Internal Medicine Nephrology | DX: R80.9 Proteinuria, unspecified (principal); Z53.9 Procedure and treatment not carried out, unspecified reason ==

== ENCOUNTER → 2018-05-15 | Outpatient (CLI) | payer MEDICARE, OTHER ==
[~2018-05-15] MED LIST: SODIUM CHLORIDE 0.9% 500 ML in EMPTY BAG 1 BAG IV PRN; SODIUM FERRIC GLUCONAT-SUCROSE 125 MG in SODIUM CHLORIDE 0.9% 100 ML IVPB NR
[2018-05-15 13:35] VITALS: BP 124/58; PULSE 57; RESP 16; TEMP 97.9
== END | disposition home or self-care (01) ==
LOC: PROCWHC3 13:31
PROVIDERS: ATTEND Internal Medicine
DX: D64.9 Anemia, unspecified (principal)
CPT/HCPCS: 96365; J2916

== ENCOUNTER 2018-08-19 08:24 | Day surgery (SDC) | payer MEDICARE, OTHER ==
[2018-08-19 09:10] VITALS: RESP 20; TEMP 97.6
--- NOTE | 2018-08-19 10:35 | CT ---
EXAMINATION TYPE: CT discontinued procedure DATE OF EXAM: 08/19/2018 COMPARISON: None HISTORY: Proteinuria CT DLP: 217 mGycm Automated exposure control for dose reduction was used. FINDINGS: The patient was hypertensive and the patient refused any medication to help control the blood pressur e. Procedure therefore was deferred by the patient. IMPRESSION: DISCONTINUED PROCEDURE SECONDARY TO HYPERTENSION.
[2018-08-19 11:21] VITALS: BP 178/80; PULSE 64
== END 2018-08-19 10:35 | disposition other institution (70) ==
LOC: RADPROMAIN 08:24
PROVIDERS: ATTEND Internal Medicine Nephrology
DX: Z53.8 Procedure and treatment not carried out for other reasons (principal); I10 Essential (primary) hypertension; R80.9 Proteinuria, unspecified
CPT/HCPCS: 36415; 76380

== ENCOUNTER 2018-09-21 07:33 | Day surgery (SDC) | payer MEDICARE, OTHER ==
[~2018-09-21 07:33] MED LIST changes: +DEXAMETHASONE SOD PHOSPHATE 10 MG/ML 1 ML VIAL IV ONE; +HYDROmorphone 0.5 MG/0.5 ML SYRINGE IVP PRN; +LACTATED RINGERS 1,000 ML IV SCH; +LIDOCAINE 1% 20 ML VIAL (10MG/ML) FOR IV START INTRADERMA PRN; +MIDAZOLAM 2 MG/2 ML VIAL IV PRN; +ONDANSETRON 4 MG/2 ML VIAL IVP ONE; +SCOPOLAMINE 1.5MG/72HR PATCH TRANSDERM ONE; -SODIUM CHLORIDE 0.9% 500 ML in EMPTY BAG 1 BAG IV PRN; -SODIUM FERRIC GLUCONAT-SUCROSE 125 MG in SODIUM CHLORIDE 0.9% 100 ML IVPB NR
[2018-09-21 08:04] LABS: Basophils # (A) 0.1 k/uL (0-0.2); Basophils % (A) 1 %; Eosinophils # (A) 0.3 k/uL (0-0.7); Eosinophils % (A) 3 %; HCT 42.7 % (39.0-53.0); HGB 14.2 gm/dL (13.0-17.5); Lymphocytes # (A) 1.1 k/uL (1.0-4.8); Lymphocytes % (A) 14 %; MCH 31.1 pg (25.0-35.0); MCHC 33.2 g/dL (31.0-37.0); MCV 93.7 fL (80.0-100.0); Mean Platelet Volume 6.9; Monocytes # (A) 0.6 k/uL (0-1.0); Monocytes % (A) 7 %; Neutrophils % (A) 73 %; Platelet Count 335 k/uL (150-450); RBC 4.56 m/uL (4.30-5.90); WBC 8.2 k/uL (3.8-10.6)
[2018-09-21 08:24] LABS: Partial Thromboplastin Time 29.4 sec (22.0-30.0); Prothrombin Time 10.2 sec (9.0-12.0)
[2018-09-21 08:40] VITALS: TEMP 97.6
[2018-09-21 09:38] VITALS: RESP 14
[2018-09-21] MEDS ORDERED: MIDAZOLAM 2 MG/2 ML VIAL ONE (09:41)
[2018-09-21] MEDS ORDERED: hydrALAZINE HCL 20 MG/ML 1 ML VIAL ONE (09:41)
[2018-09-21 10:09] LABS: Anion Gap 8 mmol/L; Blood Urea Nitrogen 18 mg/dL (9-20); Carbon Dioxide 27 mmol/L (22-30); Chloride 100 mmol/L (98-107); Potassium 4.8 mmol/L (3.5-5.1); Sodium 135 mmol/L (137-145)
[2018-09-21] MEDS ORDERED: VERAPAMIL 40 MG TAB PO STA (12:54)
--- NOTE | 2018-09-21 13:04 | CT ---
EXAMINATION TYPE: CT biopsy renal RT DATE OF EXAM: 09/21/2018 COMPARISON: NONE HISTORY: Proteinuria CT DLP: 2155 mGycm The procedure was explained to the patient. The risks, complications, benefits, and alternatives wer e discussed and any questions were answered. Informed consent was obtained. Patient was placed pron e on the CT table and prepped and draped in the usual sterile fashion. Utilizing CT guidance, an 18 gauge core biopsy needle access into the left renal cortex was achieved and three 18 gauge core samples were obtained. The patient was stable throughout the procedure and r emained stable upon discharge. IMPRESSION: Successful 18 gauge core biopsy of the kidney function.
[2018-09-21 14:39] VITALS: PULSE 56
[2018-09-21 15:21] VITALS: BP 166/81
== END 2018-09-21 15:34 | disposition home or self-care (01) ==
LOC: OR 07:33
PROVIDERS: ATTEND Internal Medicine Nephrology
DX: I13.0 Hypertensive heart and chronic kidney disease with heart failure and stage 1 through stage 4 chronic kidney disease, or unspecified chronic kidney disease (principal); N18.9 Chronic kidney disease, unspecified; R80.9 Proteinuria, unspecified; F31.9 Bipolar disorder, unspecified; I95.9 Hypotension, unspecified; E78.1 Pure hyperglyceridemia; E83.41 Hypermagnesemia; E78.5 Hyperlipidemia, unspecified; I50.9 Heart failure, unspecified; F20.9 Schizophrenia, unspecified; K21.9 Gastro-esophageal reflux disease without esophagitis; J44.9 Chronic obstructive pulmonary disease, unspecified; D50.9 Iron deficiency anemia, unspecified; Z88.8 Allergy status to other drugs, medicaments and biological substances; Z87.891 Personal history of nicotine dependence; Z79.51 Long term (current) use of inhaled steroids; Z79.899 Other long term (current) drug therapy; Z79.01 Long term (current) use of anticoagulants; Z87.01 Personal history of pneumonia (recurrent)
CPT/HCPCS: 86900; 86901; 80051; 82565; 84520; 85025; 85610; 85730; 86850; 50200; 77012; 36415; J2250; J0360

== ENCOUNTER → 2018-09-21 | Outpatient (CLI) | payer MEDICARE, OTHER | LOC: LABWHC1 07:12 | PROVIDERS: ATTEND Internal Medicine Nephrology | DX: Z53.9 Procedure and treatment not carried out, unspecified reason (principal) ==

== ENCOUNTER 2022-03-07 14:34 | Inpatient (IN) | payer MEDICAID, MEDICARE, OTHER ==
[2022-03-07] MEDS ORDERED: ACETAMINOPHEN SUPPOSITORY 650 MG SUPP RECTAL PRN (14:36)
[2022-03-07] MEDS ORDERED: LORazepam 2 MG/ML INJ IV PRN (14:36)
[2022-03-07] MEDS ORDERED: MORPHINE SULFATE 2 MG/ML SYRINGE IV PRN (14:36)
[2022-03-07] MEDS ORDERED: ONDANSETRON 4 MG/2 ML VIAL IVP PRN (14:36)
[2022-03-07] MEDS ORDERED: ATROPINE OPHTH SOLN 1% 5ML BTL SUBLINGUAL PRN (14:36)
[2022-03-07] MEDS ORDERED: MORPHINE SULFATE (100 MG/2 ML) 100 MG in SODIUM CHLORIDE 0.9% 100 ML IV SCH (14:45)
[2022-03-07] MEDS ORDERED: SCOPOLAMINE 1 MG/72 HR PATCH TRANSDERM SCH (15:00)
[2022-03-07 20:34] VITALS: RESP 28
[2022-03-07 20:35] VITALS: PULSE 85
--- NOTE | 2022-03-11 16:39 | P.DS ---
Providers Date of admission: 03/07/22 15:42 Expected date of discharge: 03/08/22 Attending physician: Hector Hickman Primary care physician: [facility] Course: Patient was admitted to inpatient hospice service. GIP. Comfort care measures were instituted. Patient underlying condition. Cause of : Pneumonia/COPD Plan - Discharge Summary New Discharge Prescriptions: No Action Multivitamins, Thera [Multivitamin (formulary)] 1 tab PO HS@1999 Demeclocycline HCl 300 mg PO HS@1999 Rivaroxaban [Xarelto] 20 mg PO HS@1999 Ferrous Sulfate [Feosol] 325 mg PO DAILY@0800 Fluticasone/Vilanterol [Breo Ellipta 100-25 Mcg Inhaler] 1 puff INHALATION RT-HS@1999 Lurasidone HCl [Latuda] 120 mg PO HS@1999 Verapamil [Isoptin] 40 mg PO TID@0800,1200,1800 Amiodarone [Cordarone] 100 mg PO DAILY@0800 Melatonin 10 mg PO HS@1999 Sodium Bicarbonate Tab 650 mg PO BID@08,1999 Iron-Vitamins 1 tab PO HS@1999 Bismuth Subsalicylate [Pepto-Bismol] 524 mg PO HS@1999 Cholecalciferol [Vitamin D3 (25 Mcg = 1000 Iu)] 75 mcg PO DAILY@0800 Atorvastatin [Lipitor] 10 mg PO DAILY@0800 Ascorbic Acid [Vitamin C] 250 mg PO DAILY@0800 predniSONE [Deltasone] See Taper PO DIRECTED Albuterol Nebulized [Ventolin Nebulized] 2.5 mg INHALATION RT-QID@08,12,16,20 Calcium Carbonate 500 mg PO AC-TID guaiFENesin-DM 600/30MG [Mucinex Dm] 1 tab PO BID@0800,1999 Doxycycline Monohydrate 100 mg PO BID@0800,1999 Levothyroxine Sodium [Synthroid] 75 mcg PO DAILY@0800 lisinopriL [Zestril] 5 mg PO DAILY@0800 Discharge Medication List Demeclocycline HCl 300 mg PO HS@199902/13/18 [History] Multivitamins, Thera [Multivitamin (formulary)] 1 tab PO HS@199902/13/18 [History] Ferrous Sulfate [Feosol] 325 mg PO DAILY@0800 04/07/18 [History] Rivaroxaban [Xarelto] 20 mg PO HS@199904/07/18 [History] Fluticasone/Vilanterol [Breo Ellipta 100-25 Mcg Inhaler] 1 puff INHALATION RT- HS@199905/05/18 [History] Lurasidone HCl [Latuda] 120 mg PO HS@199905/11/18 [History] Verapamil [Isoptin] 40 mg PO TID@0800,1200,1800 05/11/18 [History] Amiodarone [Cordarone] 100 mg PO DAILY@0800 08/12/18 [History] Albuterol Nebulized [Ventolin Nebulized] 2.5 mg INHALATION RT-QID@08,,16,03/03/22 [History] Ascorbic Acid [Vitamin C] 250 mg PO DAILY@0803/03/22 [History] Atorvastatin [Lipitor] 10 mg PO DAILY@0803/03/22 [History] Bismuth Subsalicylate [Pepto-Bismol] 524 mg PO HS@199903/03/22 [History] Calcium Carbonate 500 mg PO AC-TID 03/03/22 [History] Cholecalciferol [Vitamin D3 (25 Mcg = 1000 Iu)] 75 mcg PO DAILY@79903/03/22 [History] Doxycycline Monohydrate 100 mg PO BID@799,199903/03/22 [History] Iron-Vitamins 1 tab PO HS@199903/03/22 [History] Levothyroxine Sodium [Synthroid] 75 mcg PO DAILY@79903/03/22 [History] Melatonin 10 mg PO HS@199903/03/22 [History] Sodium Bicarbonate Tab 650 mg PO BID@08,199903/03/22 [History] guaiFENesin-DM 600/30MG [Mucinex Dm] 1 tab PO BID@08,199903/03/22 [History] lisinopriL [Zestril] 5 mg PO DAILY@79903/03/22 [History] predniSONE [Deltasone] See Taper PO DIRECTED 03/03/22 [History] Discharge Disposition: - Preliminary Cause of Preliminary Cause of : Pneumonia/COPD
== END 2022-03-08 05:39 | disposition expired | DRG 951 ==
LOC: 3SCARD 15:42
PROVIDERS: ADMIT Hospitalist; ATTEND Hospitalist
DX: Z51.5 Encounter for palliative care (principal); J15.6 Pneumonia due to other Gram-negative bacteria; J96.01 Acute respiratory failure with hypoxia; A41.50 Gram-negative sepsis, unspecified; N17.0 Acute kidney failure with tubular necrosis; I50.9 Heart failure, unspecified; J44.0 Chronic obstructive pulmonary disease with (acute) lower respiratory infection; E22.2 Syndrome of inappropriate secretion of antidiuretic hormone; E87.2 Acidosis; F51.04 Psychophysiologic insomnia; Z66 Do not resuscitate; I11.0 Hypertensive heart disease with heart failure; E78.5 Hyperlipidemia, unspecified; D50.9 Iron deficiency anemia, unspecified; M19.90 Unspecified osteoarthritis, unspecified site; E27.8 Other specified disorders of adrenal gland; F31.9 Bipolar disorder, unspecified; F20.9 Schizophrenia, unspecified; Z91.048 Other nonmedicinal substance allergy status; Z87.11 Personal history of peptic ulcer disease; Z86.59 Personal history of other mental and behavioral disorders